=== PATIENT | female | born 1935 | race Caucasian/White ===

== ENCOUNTER → 2016-07-30 | Outpatient (CLI) | payer MEDICARE ==
--- NOTE | 2016-07-31 11:22 | US ---
EXAMINATION TYPE: US thyroid st tissue head/neck DATE OF EXAM: 07/30/2016 4:29 PM COMPARISON: US CLINICAL HISTORY: E04.9 Nontoxic Goiter unspecified. Follow up thyroid nodules GLAND SIZE: Right Lobe: 4.1 x 2.3 x 2.0 cm Overall Parenchyma: heterogenous Left Lobe: 4.8 x 2.2 x 1.7 cm Overall Parenchyma: heterogeneous Isthmus Thickness: 0.7 cm NODULES RIGHT: # of nodules measured on right: 2 1. 0.9 X 0.5 x 0.8 cm hypoechoic solid nodule at the mid pole with well-defined margins. This nodul e is wider than tall and shows intranodular vascularity. Prior size: 0.9 x 0.6 x 0.8 cm 2. 1.3 X 0.8 x 1.3 cm hypoechoic mixed nodule at the lower pole with well-defined margins. This nodu le is wider than tall and shows intranodular vascularity. Prior size: no previous LEFT: # of nodules measured on left: 1 1. 1.0 X 0.7 x 0.9 cm hypoechoic mixed nodule at the mid pole with poorly defined margins. This nod ule is wider than tall and shows intranodular vascularity. Prior size: 1.0 x 1.0 x 0.9 cm ISTHMUS: # of nodules measured in the isthmus: 0 Isthmus appears thickened Heterogeneous thyroid with bilateral nodules described above, bilateral neck scanned, no evidence of lymphadenopathy. IMPRESSION: 1. There appears to be a new 1.3 x 0.8 x 1.3 cm hypoechoic nodule inferior pole right lobe thyroid. This was not present previously. Correlation with nuclear medicine thyroid scan is recommended. Biops y may be useful for additional evaluation.
== END | disposition home or self-care (01) ==
LOC: RADUSWWP 16:09
PROVIDERS: ATTEND Family Medicine
DX: E04.1 Nontoxic single thyroid nodule (principal)
CPT/HCPCS: 76536

== ENCOUNTER → 2017-04-10 | Outpatient (CLI) | payer MEDICARE ==
--- NOTE | 2017-04-11 11:07 | MM ---
Reason for exam: screening (asymptomatic). Last mammogram was performed 1 year and 1 month ago. History: Patient is postmenopausal. Took estrogen for 10 years beginning at age 57. Physical Findings: A clinical breast exam by your physician is recommended on an annual basis and results should be correlated with mammographic findings. MG 3D Screening Mammo W/Cad Bilateral CC and MLO view(s) were taken. Prior study comparison: March 08, 2016, bilateral MG 3d screening mammo w/cad. April 13, 2009, bilateral digital screening mammogram. There are scattered fibroglandular densities. Focal asymmetry inner lower left breast is stable. No significant changes when compared with prior studies. ASSESSMENT: Benign, BI-RAD 2 RECOMMENDATION: Routine screening mammogram of both breasts in 1 year.
== END | disposition home or self-care (01) ==
LOC: RADMAMWWP 10:40
PROVIDERS: ATTEND Family Medicine
DX: Z12.31 Encounter for screening mammogram for malignant neoplasm of breast (principal)
CPT/HCPCS: 77063; 77067

== ENCOUNTER 2017-04-28 18:46 | Emergency (ER) | payer MEDICARE ==
[2017-04-28 18:50] VITALS: BP 166/95; PULSE 77; RESP 20; TEMP 98.1
[2017-04-28] MEDS ORDERED: IBUPROFEN 600 MG TAB PO STA (19:27)
[2017-04-28] MEDS ORDERED: ACETAMINOPHEN TAB 325 MG TAB PO STA (19:27)
--- NOTE | 2017-04-28 19:42 | ED ---
Lower Extremity Injury HPI - General Chief Complaint: Extremity Injury, Lower Stated Complaint: ankle pain Time Seen by Provider: 04/28/17 19:20 Source: patient Mode of arrival: ambulatory Limitations: physical limitation - History of Present Illness Initial Comments: 81-year-old female patient percents to the emergency department today for evaluation of left ankle pain and swelling. Patient states that around noon today she was cross country skiing. States that she lost her balance and fell backwards on her foot was still strapped into the ski. States that she was able to inflate after that however throughout the day the swelling and pain has increased. She denies any numbness or tingling to the foot. She denies hitting her head or losing consciousness. She denies any other injuries. Patient denies any headache, neck pain, back pain, chest pain, shortness of breath, dizziness, weakness, abdominal pain, nausea, vomiting, or difficulties with bowel movements or urination. - Related Data Home Medications Medication Instructions Recorded Confirmed Aspirin 81 mg PO DAILY 02/15/14 04/28/17 Atorvastatin [Lipitor] 10 mg PO DAILY 02/15/14 04/28/17 Omeprazole [Omeprazole] 20 mg PO DAILY 02/15/14 04/28/17 Albuterol Inhaler [Ventolin Hfa 1 - 2 puff INHALATION Q6HR PRN 01/30/16 04/28/17 Inhaler] Multivit with Calcium,Iron,Min 1 tab PO DAILY 01/30/16 04/28/17 [Women's Daily Multivitamin] Solifenacin Succinate [Vesicare] 10 mg PO DAILY 01/30/16 04/28/17 Beclomethasone Dipropionate [Qvar 1 puff INHALATION RT-BID 04/28/17 04/28/17 80 mcg] Calcium Carbonate/Vitamin D3 1 tab PO DAILY 04/28/17 04/28/17 [Calcium 600-Vit D3 400 Caplet] Cholecalciferol (Vitamin D3) 2,000 unit PO DAILY 04/28/17 04/28/17 [Vitamin D3] amLODIPine [Norvasc] 5 mg PO DAILY 04/28/17 04/28/17 Allergies Allergy/AdvReac Type Severity Reaction Status Date / Time No Known Allergies Allergy Verified 04/28/17 19:26 Review of Systems ROS Statement: Those systems with pertinent positive or pertinent negative responses have been documented in the HPI. ROS Other: All systems not noted in ROS Statement are negative. Past Medical History Past Medical History: GI Bleed, Hyperlipidemia, Hypertension, Respiratory Disorder, Thyroid Disorder History of Any Multi-Drug Resistant Organisms: None Reported Past Surgical History: Hysterectomy, Orthopedic Surgery Additional Past Surgical History / Comment(s): cataracts removed, bilateral knee replacements Past Anesthesia/Blood Transfusion Reactions: No Reported Reaction Past Psychological History: No Psychological Hx Reported Smoking Status: Never smoker Past Alcohol Use History: Occasional Past Drug Use History: None Reported - Past Family History Father Family Medical History: No Reported History General Exam Limitations: physical limitation General appearance: alert, in no apparent distress, other (This is a well- developed, well-nourished elderly female patient in no acute distress. Vital signs upon presentation are temperature 98.1F, pulse 77, respirations 20, blood pressure 166/95, pulse ox 98% on room air.) Head exam: Present: atraumatic, normocephalic, normal inspection Eye exam: Present: normal appearance, PERRL, EOMI. Absent: scleral icterus, conjunctival injection, periorbital swelling ENT exam: Present: normal exam, normal oropharynx, mucous membranes moist Neck exam: Present: normal inspection, full ROM, other (Nontender, no step-off, no deformity to firm midline palpation of the posterior cervical spine. Full range of motion without pain or limitation.). Absent: tenderness, meningismus, lymphadenopathy Respiratory exam: Present: normal lung sounds bilaterally. Absent: respiratory distress, wheezes, rales, rhonchi, stridor Cardiovascular Exam: Present: regular rate, normal rhythm, normal heart sounds. Absent: systolic murmur, diastolic murmur, rubs, gallop, clicks Extremities exam: Present: full ROM, tenderness (Tenderness on the left lateral malleolus), normal capillary refill, joint swelling (Left ankle swelling), other (Swelling surrounding the left ankle. Tenderness over the left lateral malleolus. Skin is otherwise pink, warm, and dry. Cap refills less than 3 seconds. There is no fifth metatarsal tenderness.). Absent: normal inspection , pedal edema, calf tenderness Back exam: Present: normal inspection, other (Nontender, no step-off, no deformity to firm midline palpation of the thoracic and lumbar vertebrae. Full range of motion without pain or limitation.). Absent: vertebral tenderness Neurological exam: Present: alert, oriented X3, CN II-XII intact Psychiatric exam: Present: normal affect, normal mood Skin exam: Present: warm, dry, intact, normal color. Absent: rash Course Vital Signs 04/28/17 18:48 Temperature 98.1 F Pulse Rate 77 Respiratory 20 Rate Blood Pressure 166/95 O2 Sat by Pulse 98 Oximetry Medical Decision Making - Medical Decision Making 81-year-old female patient presented to the emergency department today for evaluation of left ankle pain and swelling after falling while cross-country skiing. Physical examination reveals swelling surrounding the left lateral malleolus and tenderness to the same area. Neurovascular status is intact. X- rays negative for any acute fracture or dislocation. Patient symptoms are consistent with an ankle sprain. She'll be placed in an air splint. She is instructed to have repeat x-rays performed in 7-10 days if her symptoms are not improved. She is educated regarding rest, ice, and elevation. She is instructed to return here immediately for any new, worsening, or concerning symptoms. She verbalizes understanding and agrees with this plan. - Radiology Data Radiology results: report reviewed, image reviewed 3 views of the left foot are obtained, no acute fractures are evident. The soft tissues over the foot appear normal. Plantar and Achilles tendon calcaneal heel spurs are present. Some mild soft tissue swelling over the ankles noted. Follow-up exams can be performed in 7-10 days for continued pain. Impression by Dr. Oh shows mild soft tissue swelling at the ankle. Calcaneal heel spurs. No acute displaced fractures are identified. 3 views of the left ankle are obtained, ankle mortise is intact. Minimal soft tissue swelling over the lateral malleolus may be present. Plantar and Achilles tendon calcaneal heel spurs are present. No acute displaced fractures. Impression is by Dr. Oh. Disposition Clinical Impression: Left ankle sprain Disposition: HOME SELF-CARE Condition: Good Instructions: Ankle Sprain (ED) Additional Instructions: Rest, ice, elevate the left ankle. Follow-up for reevaluation and repeat x- rays in 7-10 days if her symptoms persist. Take Tylenol Motrin for discomfort. Return here immediately for any other new, worsening, or concerning symptoms. Referrals: J Luis Aguayo DO [Primary Care Provider] - 1-2 days Time of Disposition: 20:03
--- NOTE | 2017-04-28 19:55 | XR ---
EXAMINATION TYPE: XR foot complete LT DATE OF EXAM: 04/28/2017 COMPARISON: NONE HISTORY: Fall skiing, pain TECHNIQUE: 3 views left foot FINDINGS: No acute fractures are evident. The soft tissues over the foot appear normal. Plantar and A chilles tendon calcaneal heel spurs are present. Some mild soft tissue swelling over the ankle is not ed. Follow-up exams can be performed 7-10 days from acute trauma for continued pain. IMPRESSION: 1. Mild soft tissue swelling at the ankle. 2. Calcaneal heel spurs. 3. No acute displaced fractures identified.
--- NOTE | 2017-04-28 19:55 | XR ---
EXAMINATION TYPE: XR ankle complete LT DATE OF EXAM: 04/28/2017 COMPARISON: NONE HISTORY: Left ankle left foot pain TECHNIQUE: Three-view left ankle FINDINGS: Ankle mortise is intact. Minimal soft tissue swelling over the lateral malleolus may be pre sent. Plantar and Achilles tendon calcaneal heel spurs are present. No acute displaced fractures are evident. IMPRESSION: 1. Soft tissue swelling lateral malleolus. 2. Calcaneal heel spurs. 3. Follow-up exams can be performed 7-10 days from acute trauma for continued pain.
== END 2017-04-28 20:26 | disposition home or self-care (01) ==
LOC: EC 18:46
DX: S93.402A Sprain of unspecified ligament of left ankle, initial encounter (principal); I10 Essential (primary) hypertension; E78.5 Hyperlipidemia, unspecified; E07.9 Disorder of thyroid, unspecified; Z96.653 Presence of artificial knee joint, bilateral; Z79.51 Long term (current) use of inhaled steroids; Z79.82 Long term (current) use of aspirin; Z79.899 Other long term (current) drug therapy; V00.321A Fall from snow-skis, initial encounter; Y93.24 Activity, cross country skiing; Y92.89 Other specified places as the place of occurrence of the external cause
CPT/HCPCS: 73610; 73630; 99283; 29515; L4350

== ENCOUNTER 2018-08-08 09:22 | Emergency (ER) | payer MEDICARE ==
[2018-08-08 09:27] VITALS: BP 148/69; PULSE 70; RESP 18; TEMP 97.8
--- NOTE | 2018-08-08 09:45 | ED ---
General Adult HPI - General Chief complaint: Fall Stated complaint: FALL, HEAD INJURY Time Seen by Provider: 08/08/18 09:35 Source: patient, RN notes reviewed, old records reviewed Mode of arrival: ambulatory Limitations: no limitations - History of Present Illness Initial comments: 82-year-old female presents for evaluation of head injury status post fall. Patient fell 2 days prior striking her right knee, right shoulder, and right forehead. Patient was reading the mail while walking up her driveway, tripped on uneven concrete. She did not lose consciousness. She is on aspirin, no anticoagulation. She's developed worsening black eye and radiating down her right sclera. She is accompanied by her daughter. She was urged present emergency department for evaluation. She denies current knee pain. States she did have some shoulder pain although she has chronic right-sided shoulder pain and states her right shoulder actually feels better than typical. Denies significant headache. She has pain at the site of injury, right forehead and right periorbital region. No vision changes. No focal numbness or weakness. - Related Data Home Medications Medication Instructions Recorded Confirmed Aspirin 81 mg PO DAILY 02/15/14 04/28/17 Atorvastatin [Lipitor] 10 mg PO DAILY 02/15/14 04/28/17 Omeprazole 20 mg PO DAILY 02/15/14 04/28/17 Albuterol Inhaler [Ventolin Hfa 1 - 2 puff INHALATION Q6HR PRN 01/30/16 04/28/17 Inhaler] Multivit with Calcium,Iron,Min 1 tab PO DAILY 01/30/16 04/28/17 [Women's Daily Multivitamin] Solifenacin Succinate [Vesicare] 10 mg PO DAILY 01/30/16 04/28/17 Beclomethasone Dipropionate [Qvar 1 puff INHALATION RT-BID 04/28/17 04/28/17 80 mcg] Calcium Carbonate/Vitamin D3 1 tab PO DAILY 04/28/17 04/28/17 [Calcium 600-Vit D3 400 Caplet] Cholecalciferol (Vitamin D3) 2,000 unit PO DAILY 04/28/17 04/28/17 [Vitamin D3] amLODIPine [Norvasc] 5 mg PO DAILY 04/28/17 04/28/17 Allergies Allergy/AdvReac Type Severity Reaction Status Date / Time No Known Allergies Allergy Verified 08/08/18 09:27 Review of Systems ROS Statement: Those systems with pertinent positive or pertinent negative responses have been documented in the HPI. ROS Other: All systems not noted in ROS Statement are negative. Past Medical History Past Medical History: GI Bleed, Hyperlipidemia, Hypertension, Respiratory Disorder, Thyroid Disorder History of Any Multi-Drug Resistant Organisms: None Reported Past Surgical History: Hysterectomy, Orthopedic Surgery Additional Past Surgical History / Comment(s): cataracts removed, bilateral knee replacements Past Anesthesia/Blood Transfusion Reactions: No Reported Reaction Past Psychological History: No Psychological Hx Reported Smoking Status: Never smoker Past Alcohol Use History: Occasional Past Drug Use History: None Reported - Past Family History Father Family Medical History: No Reported History General Exam Limitations: no limitations General appearance: alert, in no apparent distress Head exam: Present: normocephalic, other (Right periorbital ecchymosis, forehead hematoma and ecchymosis, tenderness over the lateral orbit.) Eye exam: Present: PERRL, EOMI, periorbital swelling, periorbital tenderness, other (Some conjunctival hemorrhage, no hyphema) ENT exam: Present: normal exam Neck exam: Present: normal inspection, full ROM. Absent: tenderness, meningismus Respiratory exam: Present: normal lung sounds bilaterally. Absent: respiratory distress, wheezes Cardiovascular Exam: Present: regular rate, normal rhythm GI/Abdominal exam: Present: soft. Absent: distended, tenderness, guarding Extremities exam: Present: normal inspection, normal capillary refill. Absent: pedal edema Neurological exam: Present: alert, oriented X3, CN II-XII intact. Absent: motor sensory deficit Psychiatric exam: Present: normal affect, normal mood Skin exam: Present: warm, dry, intact. Absent: cyanosis, diaphoretic Course Vital Signs 08/08/18 09:23 Temperature 97.8 F Pulse Rate 70 Respiratory 18 Rate Blood Pressure 148/69 O2 Sat by Pulse 98 Oximetry Medical Decision Making - Medical Decision Making 82-year-old female with fall, head injury. Patient has periorbital ecchymosis and bony tenderness over the right lateral orbit. Extraocular motions are intact. She has a minor subconjunctival hemorrhage with no hyphema, reactive pupils. CT is performed of the brain is negative for intracranial hemorrhage, CT cervical spine negative for fracture subluxation, CT of the facial bones is negative for any acute bony abnormality. Patient will be discharged home, close outpatient follow-up. Disposition Clinical Impression: Fall, Traumatic ecchymosis of right orbit, Closed head injury Disposition: HOME SELF-CARE Condition: Good Instructions (If sedation given, give patient instructions): Fall Prevention for Older Adults (ED), Black Eye (ED), Concussion (ED) Is patient prescribed a controlled substance at d/c from ED?: No Referrals: J Luis Aguayo DO [Primary Care Provider] - 1-2 days Time of Disposition: 10:36
--- NOTE | 2018-08-08 10:08 | CT ---
EXAMINATION TYPE: CT brain marcos wo con DATE OF EXAM: 08/08/2018 COMPARISON: 05/03/2015 HISTORY: Right eye contusion post fall. CT DLP: 730.[address] of the brain was performed. The ventricles, basal cisterns and sulci overlying the cerebral convexities demonstrate mild enlargem ent. Physiologic calcifications noted. There is no evidence for intracranial hemorrhage or sulcal effacement. There is decreased attenuatio n about the periventricular white matter and deep white matter of both cerebral hemispheres, compatib le with chronic small vessel ischemia. No mass effects are seen. If symptoms persist consider MRI. Osseous calvarium is intact. IMPRESSION: 1. Age related atrophic and chronic small vessel ischemic change without acute intracranial process seen at this time. CT Cervical Spine: Unenhanced CT of the cervical spine was performed with bone and soft tissue window settings submitted . Coronal and sagittal reconstruction is obtained. There is normal alignment and prevertebral soft tissues. No evidence for acute cervical fracture . Scattered degenerative disc disease and spondylosis. Biapical scarring. IMPRESSION: 1. No evidence for acute fracture or subluxation of the cervical spine.
--- NOTE | 2018-08-08 10:09 | CT ---
EXAMINATION TYPE: CT facial bones wo con DATE OF EXAM: 08/08/2018 COMPARISON: None HISTORY: Right eye contusion post fall. CT DLP: 208.[address] of the facial bones was performed in the axial and coronal planes. Bone and soft tissu e window settings are submitted. Mild right periorbital soft tissue swelling. I do not see evidence for displaced facial bone fracture or depressed facial bone fracture. The globes are intact. Paranasal sinuses are well-aerated. IMPRESSION: 1. No evidence for depressed or displaced facial bone fracture.
== END 2018-08-08 10:48 | disposition home or self-care (01) ==
LOC: EC 09:22
DX: S00.11XA Contusion of right eyelid and periocular area, initial encounter (principal); S00.83XA Contusion of other part of head, initial encounter; H11.30 Conjunctival hemorrhage, unspecified eye; G89.29 Other chronic pain; M25.511 Pain in right shoulder; E78.5 Hyperlipidemia, unspecified; I10 Essential (primary) hypertension; Z79.51 Long term (current) use of inhaled steroids; Z79.82 Long term (current) use of aspirin; Z79.899 Other long term (current) drug therapy; Z87.19 Personal history of other diseases of the digestive system; Z87.09 Personal history of other diseases of the respiratory system; Z96.653 Presence of artificial knee joint, bilateral; W01.0XXA Fall on same level from slipping, tripping and stumbling without subsequent striking against object, initial encounter; Y93.01 Activity, walking, marching and hiking; Y92.009 Unspecified place in unspecified non-institutional (private) residence as the place of occurrence of the external cause
CPT/HCPCS: 70450; 70486; 72125; 99284

== ENCOUNTER 2018-08-21 20:24 | Emergency (ER) | payer MEDICARE ==
[2018-08-21 20:30] VITALS: RESP 18
[2018-08-21 21:33] LABS: RBC,Urine >182 /hpf (0-5); WBC,Urine >182 /hpf (0-5)
[2018-08-21 21:34] LABS: Appearance,Urine Bloody (Clear); Color,Urine Red
--- NOTE | 2018-08-21 21:43 | ED ---
Female Urogenital HPI - General Source: patient Mode of arrival: ambulatory Limitations: no limitations <Julio Frias - Last Filed: 08/21/18 22:27> <Elena Stevens - Last Filed: 08/22/18 02:52> - General Chief complaint: Urogenital Stated complaint: blood in urine Time Seen by Provider: 08/21/18 20:39 - History of Present Illness Initial comments: Patient is an 82-year-old female presents emergency Department with urinary symptoms. Patient reports increased urgency and frequency, dysuria but no dysuria over the past 2 days. Patient reports mild suprapubic pain without radiation. Patient states that she is unable to fully control of bladder. Patient reports hematuria developed since yesterday but denies hematochezia or melena. Patient denies abdominal pain, flank pain, headache, nausea, vomiting, diarrhea or fever. Patient denies taking any medication to alleviate the symptoms. Patient reports symptoms of urinary retention but states that is her baseline as she is receiving outpatient treatment. (Julio Frias) - Related Data Home Medications Medication Instructions Recorded Confirmed Aspirin 81 mg PO DAILY 02/15/14 04/28/17 Atorvastatin [Lipitor] 10 mg PO DAILY 02/15/14 04/28/17 Omeprazole 20 mg PO DAILY 02/15/14 04/28/17 Albuterol Inhaler [Ventolin Hfa 1 - 2 puff INHALATION Q6HR PRN 01/30/16 04/28/17 Inhaler] Multivit with Calcium,Iron,Min 1 tab PO DAILY 01/30/16 04/28/17 [Women's Daily Multivitamin] Solifenacin Succinate [Vesicare] 10 mg PO DAILY 01/30/16 04/28/17 Beclomethasone Dipropionate [Qvar 1 puff INHALATION RT-BID 04/28/17 04/28/17 80 mcg] Calcium Carbonate/Vitamin D3 1 tab PO DAILY 04/28/17 04/28/17 [Calcium 600-Vit D3 400 Caplet] Cholecalciferol (Vitamin D3) 2,000 unit PO DAILY 04/28/17 04/28/17 [Vitamin D3] amLODIPine [Norvasc] 5 mg PO DAILY 04/28/17 04/28/17 Previous Rx's Medication Instructions Recorded Ciprofloxacin HCl [Cipro] 500 mg PO Q12HR #20 tablet 08/21/18 Allergies Allergy/AdvReac Type Severity Reaction Status Date / Time No Known Allergies Allergy Verified 08/21/18 20:30 Review of Systems ROS Other: All systems not noted in ROS Statement are negative. <Julio Frias - Last Filed: 08/21/18 22:27> ROS Other: All systems not noted in ROS Statement are negative. <Elena Stevens - Last Filed: 08/22/18 02:52> ROS Statement: Those systems with pertinent positive or pertinent negative responses have been documented in the HPI. Past Medical History Past Medical History: GI Bleed, Hyperlipidemia, Hypertension, Respiratory Disorder, Thyroid Disorder History of Any Multi-Drug Resistant Organisms: None Reported Past Surgical History: Hysterectomy, Orthopedic Surgery Additional Past Surgical History / Comment(s): cataracts removed, bilateral knee replacements Past Anesthesia/Blood Transfusion Reactions: No Reported Reaction Past Psychological History: No Psychological Hx Reported Smoking Status: Never smoker Past Alcohol Use History: Occasional Past Drug Use History: None Reported - Past Family History Father Family Medical History: No Reported History <Julio Frias - Last Filed: 08/21/18 22:27> General Exam Limitations: no limitations General appearance: alert, in no apparent distress Head exam: Present: atraumatic, normocephalic, normal inspection Eye exam: Present: normal appearance, PERRL, EOMI Pupils: Present: normal accommodation ENT exam: Present: normal exam, mucous membranes moist, TM's normal bilaterally Neck exam: Present: normal inspection, full ROM Respiratory exam: Present: normal lung sounds bilaterally Cardiovascular Exam: Present: regular rate, normal rhythm, normal heart sounds GI/Abdominal exam: Present: soft, tenderness (Mild suprapubic tenderness), normal bowel sounds, other (Negative McBurney point tenderness, negative psoas sign, negative Rovsing, negative Yang sign). Absent: distended, guarding, rebound Extremities exam: Present: normal inspection, full ROM Back exam: Present: normal inspection. Absent: CVA tenderness (R), CVA tenderness (L) Neurological exam: Present: alert, oriented X3 Psychiatric exam: Present: normal affect, normal mood Skin exam: Present: warm, intact, normal color <Julio Frias - Last Filed: 06/06/19 22:27> Course Vital Signs 08/21/18 08/21/18 20:26 22:53 Temperature 98 F 98.0 F Pulse Rate 79 67 Respiratory 18 18 Rate Blood Pressure 172/75 153/72 O2 Sat by Pulse 96 97 Oximetry Medical Decision Making - Lab Data Result diagrams: 08/21/18 21:24 08/21/18 21:24 <Julio Frias - Last Filed: 08/21/18 22:27> - Lab Data Result diagrams: 08/21/18 21:24 08/21/18 21:24 <Elena Stevens - Last Filed: 08/22/18 02:52> - Medical Decision Making Patient is an 82-year-old female presenting to emergency department with urinary symptoms. UA showing for elevated red and white blood cells. Patient will be treated for a complicated UTI with a ten-day course of ciprofloxacin. Patient advised about the possible side effects of the medication. Patient advised to follow with primary care. Patient advised to return to emergency department if symptoms worsen. Case discussed with physician. (Julio Frias) I was available for consultation in the emergency department. The history and physical exam were done by the midlevel provider. I was consulted for this patient's care. I reviewed the case with the midlevel provider and based on their presentation of the patient, I agree with the assessment, medical decision making and plan of care as documented. Chart was dictated using [employer] dictation software. Attempts were made to correct any dictation errors however some typographical errors may persist. (Elena Stevens) - Lab Data Lab Results 08/21/18 08/21/18 08/21/18 Range/Units 20:55 21:24 21:24 WBC 7.7 (3.8-10.6) k/uL RBC 4.02 (3.80-5.40) m/uL Hgb 12.0 (11.4-16.0) gm/dL Hct 36.6 (34.0-46.0) % MCV 91.0 (80.0-100.0) fL MCH 30.0 (25.0-35.0) pg MCHC 32.9 (31.0-37.0) g/dL RDW 13.8 (11.5-15.5) % Plt Count 264 (150-450) k/uL Neutrophils % 66 % Lymphocytes % 24 % Monocytes % 5 % Eosinophils % 3 % Basophils % 1 % Neutrophils # 5.1 (1.3-7.7) k/uL Lymphocytes # 1.8 (1.0-4.8) k/uL Monocytes # 0.4 (0-1.0) k/uL Eosinophils # 0.2 (0-0.7) k/uL Basophils # 0.1 (0-0.2) k/uL Sodium 134 L (137-145) mmol/L Potassium 4.8 (3.5-5.1) mmol/L Chloride 102 (98-107) mmol/L Carbon Dioxide 25 (22-30) mmol/L Anion Gap 7 mmol/L BUN 20 H (7-17) mg/dL Creatinine 0.84 (0.52-1.04) mg/dL Est GFR (CKD-EPI)AfAm 76 (>60 ml/min/1.73 sqM) Est GFR (CKD-EPI)NonAf 66 (>60 ml/min/1.73 sqM) Glucose 110 H (74-99) mg/dL Calcium 9.5 (8.4-10.2) mg/dL Total Bilirubin 0.7 (0.2-1.3) mg/dL AST 34 (14-36) U/L ALT 13 (9-52) U/L Alkaline Phosphatase 81 (38-126) U/L Total Protein 7.6 (6.3-8.2) g/dL Albumin 4.3 (3.5-5.0) g/dL Urine Color Red Urine Appearance Bloody H (Clear) Urine RBC >182 H (0-5) /hpf Urine WBC >182 H (0-5) /hpf Disposition Is patient prescribed a controlled substance at d/c from ED?: No Time of Disposition: 22:31 <Julio Frias - Last Filed: 08/21/18 22:27> <Elena Stevens - Last Filed: 08/22/18 02:52> Clinical Impression: Urinary tract infection symptoms Disposition: HOME SELF-CARE Condition: Stable Instructions (If sedation given, give patient instructions): Urinary Tract Infection in Women (ED) Additional Instructions: Please take prescribed medication as directed. Please follow up primary care. Return to emergency department if symptoms worsen. Prescriptions: Ciprofloxacin HCl [Cipro] 500 mg PO Q12HR #20 tablet Referrals: J Luis Aguayo DO [Primary Care Provider] - 1-2 days
[2018-08-21 21:46] LABS: Basophils # (A) 0.1 k/uL (0-0.2); Basophils % (A) 1 %; Eosinophils # (A) 0.2 k/uL (0-0.7); Eosinophils % (A) 3 %; HCT 36.6 % (34.0-46.0); Lymphocytes # (A) 1.8 k/uL (1.0-4.8); Lymphocytes % (A) 24 %; MCHC 32.9 g/dL (31.0-37.0); Mean Platelet Volume 6.9; Monocytes # (A) 0.4 k/uL (0-1.0); Monocytes % (A) 5 %; Neutrophils # (A) 5.1 k/uL (1.3-7.7); Neutrophils % (A) 66 %; Platelet Count 264 k/uL (150-450); RBC 4.02 m/uL (3.80-5.40); RDW 13.8 % (11.5-15.5); WBC 7.7 k/uL (3.8-10.6)
[2018-08-21 21:49] LABS: Albumin 4.3 g/dL (3.5-5.0); Calcium 9.5 mg/dL (8.4-10.2); Total Bilirubin 0.7 mg/dL (0.2-1.3); Total Protein 7.6 g/dL (6.3-8.2)
[2018-08-21 22:05] LABS: Potassium 4.8 mmol/L (3.5-5.1)
[2018-08-21] MEDS ORDERED: CIPROFLOXACIN HCL 500 MG TAB PO STA (22:37)
[2018-08-21 22:54] VITALS: BP 153/72; PULSE 67; TEMP 98
== END 2018-08-21 22:53 | disposition home or self-care (01) ==
LOC: EC 20:24
DX: N39.0 Urinary tract infection, site not specified (principal); E78.5 Hyperlipidemia, unspecified; I10 Essential (primary) hypertension; Z79.51 Long term (current) use of inhaled steroids; Z79.82 Long term (current) use of aspirin; Z79.899 Other long term (current) drug therapy; Z87.19 Personal history of other diseases of the digestive system; Z90.710 Acquired absence of both cervix and uterus; Z96.653 Presence of artificial knee joint, bilateral
CPT/HCPCS: 36415; 51798; 80053; 85025; 87086; 99284

== ENCOUNTER → 2018-10-10 | Outpatient (CLI) | payer MEDICARE ==
--- NOTE | 2018-10-10 14:20 | US ---
EXAMINATION TYPE: US thyroid st tissue head/neck DATE OF EXAM: 10/10/2018 COMPARISON: CLINICAL HISTORY: E04.2 Nontoxic multinodular goiter. On thyroid meds. Follow up nodules. GLAND SIZE: Right Lobe: 5.0 x 2.0 x 2.3 cm Overall Parenchyma: heterogenous Left Lobe: 4.4 x 2.1 x 2.2 cm Overall Parenchyma: heterogeneous Isthmus Thickness: 0.7 cm NODULES RIGHT: # of nodules measured on right: 2 1. 1.0 X 0.9 x 0.6 cm hypoechoic nodule at the mid pole with well-defined margins. This nodule is wider than tall and shows intranodular vascularity. Prior size: 0.9 x 0.5 x 0.8 cm 2. 1.3 X 1.1 x 1.1 cm mixed nodule at the lower pole with well-defined margins. This nodule is wide as tall and shows intranodular vascularity. Prior size: 1.3 x 0.8 x 1.3 cm LEFT: # of nodules measured on left: 1 1. 1.0 X 0.9 x 1.0 cm mixed nodule at the mid pole with well-defined margins. This nodule is talle r than wide and shows intranodular vascularity. Prior size: 1.0 x 0.7 x 0.9 cm ISTHMUS: # of nodules measured in the isthmus: 0 Bilateral neck scanned, no evidence of lymphadenopathy. Glandular hypervascularity seen throughout. IMPRESSION: Similar size of the bilateral thyroid nodules in an enlarged and heterogenous multinodular goiter. Un derlying thyroiditis is suspected as there is glandular hypervascularity.
== END | disposition home or self-care (01) ==
LOC: RADUSWWP 12:54
PROVIDERS: ATTEND Internal Medicine Endocrinology, Diabetes & Metabolism
DX: E04.2 Nontoxic multinodular goiter (principal)
CPT/HCPCS: 76536

== ENCOUNTER → 2019-10-07 | Outpatient (CLI) | payer MEDICARE ==
--- NOTE | 2019-10-07 13:14 | US ---
EXAMINATION TYPE: US thyroid st tissue head/neck DATE OF EXAM: 10/07/2019 COMPARISON: 10/10/2018 CLINICAL HISTORY: E04.2 Nontoxic multinodular goiter. Follow up thyroid nodules, patient on thyroid m eds GLAND SIZE: Right Lobe: 5.2 x 2.3 x 2.4 cm Overall Parenchyma: heterogenous Left Lobe: 5.3 x 2.2 x 1.9 cm Overall Parenchyma: heterogeneous Isthmus Thickness: 0.8 cm NODULES RIGHT: # of nodules measured on right: 2 1. 1.3 X 0.9 x 1.3 cm hypoechoic mixed nodule at the mid pole with well-defined margins. This nodul e is wider than tall and shows intranodular vascularity. Prior size: 1.0 x 0.9 x 0.6 cm 2. 1.2 X 0.9 x 1.2 cm hypoechoic mixed nodule at the lower pole with well-defined margins. This nodu le is wider than tall and shows intranodular vascularity. Prior size: 1.3 x 1.1 x 1.1 cm LEFT: # of nodules measured on left: 0 Nodule seen on previous ultrasound not clearly seen on today's exam. ISTHMUS: # of nodules measured in the isthmus: 0 Bilateral neck scanned, no evidence of lymphadenopathy. IMPRESSION: 1. Stable multinodular thyroid changes. Correlate for thyromegaly and thyroiditis.
== END | disposition home or self-care (01) ==
LOC: RADUSWWP 12:43
PROVIDERS: ATTEND Internal Medicine Endocrinology, Diabetes & Metabolism
DX: E04.2 Nontoxic multinodular goiter (principal)
CPT/HCPCS: 76536

== ENCOUNTER → 2019-11-09 | Outpatient (CLI) | payer MEDICARE ==
--- NOTE | 2019-11-09 15:13 | FL ---
EXAMINATION TYPE: FL barium swallow DATE OF EXAM: 11/09/2019 CLINICAL HISTORY: Gastroesophageal reflux, lump in the epigastric region TECHNIQUE: A double contrast esophagram is performed utilizing air and barium. A total of 50 second s of fluoroscopic time was utilized during procedure. 14 images were obtained. COMPARISON: None FINDINGS: Esophagus dilates to normal caliber has normal contour to the gastroesophageal junction. There is a s mall hiatal hernia present. Multiple tertiary contractions within the distal third of the esophagus. There may have been a secondary contraction present. In the horizontal drinking position there is incomplete stripping the esophageal bolus with retention of contrast within the mid esophagus. IMPRESSION: 1. Presbyesophagus. 2. Hiatal hernia.
== END | disposition home or self-care (01) ==
LOC: RADFLMAIN 09:48
PROVIDERS: ATTEND Family Medicine
DX: K22.8 Other specified diseases of esophagus (principal); K44.9 Diaphragmatic hernia without obstruction or gangrene; K21.9 Gastro-esophageal reflux disease without esophagitis
CPT/HCPCS: 74220

== ENCOUNTER → 2019-11-26 | Outpatient (CLI) | payer MEDICARE ==
--- NOTE | 2019-11-26 13:26 | CT ---
EXAMINATION TYPE: CT abdomen pelvis w con DATE OF EXAM: 11/26/2019 HISTORY: Ventral hernia without obstruction. CT DLP: 795.2mGycm Automated Exposure Control for Dose Reduction was Utilized. CONTRAST: CT scan of the abdomen and pelvis is performed without oral but with IV Contrast, patient injected wi th 100 mL of Isovue 300. COMPARISON: None. FINDINGS: LUNG BASES: There is 3 mm calcified subpleural nodule or granuloma right lung base axial image 18. LIVER/GB: No significant abnormality is appreciated. PANCREAS: No significant abnormality is seen. SPLEEN: No significant abnormality is seen. ADRENALS: No significant abnormality is seen. KIDNEYS: There is symmetric cortical medullary uptake and excretion without hydronephrosis seen bilat erally. There are several simple-appearing thin-walled cysts noted bilaterally including dominant exo phytic lesions in the right kidney and more central parapelvic thin-walled cyst in the left kidney. T here is 1.7 cm slightly more dense exophytic lesion right kidney mid to lower pole level favoring pro teinaceous cyst coronal image 55, Hounsfield units average 36. Consider ultrasound follow-up to exclu de solid mass though felt Much less likely. BOWEL: Small size hiatal hernia. High dense material within the cecum causes streak artifact, additio nal finding noted in diverticula of the sigmoid colon. Finding likely related to retained contrast fr om esophagram study November 09, 2019. No suspicious small or large bowel dilatation. Mild wall thicken ing transverse and left colon presumed product of poor distention. UTERUS/ADNEXA: Uterus is surgically absent. LYMPH NODES: No greater than 1cm abdominal or pelvic lymph nodes are appreciated. OSSEOUS STRUCTURES: Moderate narrowing and spurring of both hip joints. Moderate to severe narrowing lumbosacral junction. Facet arthropathy lower lumbar levels. Hemangioma right T12 level on image 65. OTHER: Moderate to severe calcified plaque of the aorta extends into branch vessels. Tiny fat-contain ing umbilical hernia. IMPRESSION: Tiny fat-containing umbilical hernia otherwise no ventral wall hernia identified. No manas l obstruction. Distal colonic diverticulosis without acute diverticulitis.
== END | disposition home or self-care (01) ==
LOC: RADCTMAIN 11:36
PROVIDERS: ATTEND Student in an Organized Health Care Education/Training Program
DX: K42.9 Umbilical hernia without obstruction or gangrene (principal); K57.30 Diverticulosis of large intestine without perforation or abscess without bleeding; K43.9 Ventral hernia without obstruction or gangrene
CPT/HCPCS: 82565; 84520; 74177; 36415; Q9967

== ENCOUNTER → 2019-12-17 | Outpatient (CLI) | payer MEDICARE | END | disposition home or self-care (01) | LOC: LABWHC1 12:25 | PROVIDERS: ATTEND Student in an Organized Health Care Education/Training Program | DX: U07.1 COVID-19 (principal) ==

== ENCOUNTER 2019-12-22 07:08 | Day surgery (SDC) | payer MEDICARE ==
[2019-12-21 10:44] VITALS: BMI 29.1
[~2019-12-22 07:08] MED LIST: DEXAMETHASONE SOD PHOSPHATE 10 MG/ML 1 ML VIAL IV ONE; HYDROmorphone 0.5 MG/0.5 ML SYRINGE IVP PRN; LACTATED RINGERS 1,000 ML IV SCH; MIDAZOLAM 2 MG/2 ML VIAL IV PRN; ONDANSETRON 4 MG/2 ML VIAL IVP ONE; Pre Op ABX Message 1 EACH MISC MISCELLANE ONE
[2019-12-22 07:57] VITALS: TEMP 98.2
[2019-12-22] MEDS ORDERED: fentaNYL (PF) 50 MCG/ML 2 ML AMP ONE (08:27)
[2019-12-22] MEDS ORDERED: PROPOFOL 10 MG/ML 20 ML VIAL IV ONE (08:27)
[2019-12-22] MEDS ORDERED: ceFAZolin 1,000 MG VIAL IVPB ONE (08:36)
[2019-12-22] MEDS ORDERED: LIDOCAINE 1%-EPI 1:100,000 20 ML VIAL SQ ONE ×2 (08:40→08:52)
--- NOTE | 2019-12-22 09:02 | P.OP ---
Date of Procedure: 12/22/19 Preoperative Diagnosis: Soft Tissue Mass anterior abdomen RUQ Postoperative Diagnosis: Same Procedure(s) Performed: Excision of soft tissue mass anterior right upper abdomen Anesthesia: MAC Surgeon: Dylan Bowser Estimated Blood Loss (ml): 3 Pathology: other (Soft tissue mass) Condition: stable Disposition: same day Description of Procedure: Patient brought operative suite remained in supine position underwent sedation per department of anesthesia she was prepped and draped in the usual sterile fashion timeout was performed correct patient correct procedure correct site was verified. A 4 cm incision was made in the right upper anterior abdomen cyst dissected down through the subcutaneous tissues were a soft tissue mass approximately 3 cm x 3 cm was noted this appeared to be a lipoma this was excised completely and sent to pathology. Hemostasis was achieved the wound was copiously irrigated the wound was then closed with 30 subdermal Vicryl sutures followed by 4-0 Monocryl running subcuticular suture sterile dressing was applied patient tolerated the procedure well no apparent complications Plan - Discharge Summary Discharge Rx Participant: No New Discharge Prescriptions: No Action Omeprazole 20 mg PO DAILY Atorvastatin [Lipitor] 10 mg PO DAILY Aspirin 81 mg PO DAILY Solifenacin Succinate [Vesicare] 5 mg PO DAILY Multivit with Calcium,Iron,Min [Women's Daily Multivitamin] 1 tab PO DAILY amLODIPine [Norvasc] 5 mg PO DAILY Calcium Carbonate/Vitamin D3 [Calcium 600-Vit D3 400 Caplet] 1 tab PO DAILY Cholecalciferol (Vitamin D3) [Vitamin D3] 2,000 unit PO DAILY Levothyroxine Sodium [Synthroid] 50 mcg PO DAILY Discharge Medication List Aspirin 81 mg PO DAILY 02/15/14 [History] Atorvastatin [Lipitor] 10 mg PO DAILY 02/15/14 [History] Omeprazole 20 mg PO DAILY 02/15/14 [History] Multivit with Calcium,Iron,Min [Women's Daily Multivitamin] 1 tab PO DAILY 01/30/16 [History] Solifenacin Succinate [Vesicare] 5 mg PO DAILY 01/30/16 [History] Calcium Carbonate/Vitamin D3 [Calcium 600-Vit D3 400 Caplet] 1 tab PO DAILY 04/28/17 [History] Cholecalciferol (Vitamin D3) [Vitamin D3] 2,000 unit PO DAILY 04/28/17 [History] amLODIPine [Norvasc] 5 mg PO DAILY 04/28/17 [History] Levothyroxine Sodium [Synthroid] 50 mcg PO DAILY 12/21/19 [History]
[2019-12-22 09:18] VITALS: BP 151/72; PULSE 68; RESP 16
== END 2019-12-22 09:44 | disposition home or self-care (01) ==
LOC: OR 07:08
PROVIDERS: ATTEND Student in an Organized Health Care Education/Training Program
DX: D17.1 Benign lipomatous neoplasm of skin and subcutaneous tissue of trunk (principal); K42.9 Umbilical hernia without obstruction or gangrene; I10 Essential (primary) hypertension; E78.5 Hyperlipidemia, unspecified; E07.9 Disorder of thyroid, unspecified; J44.9 Chronic obstructive pulmonary disease, unspecified; M19.90 Unspecified osteoarthritis, unspecified site; Z79.82 Long term (current) use of aspirin; Z79.890 Hormone replacement therapy; Z79.899 Other long term (current) drug therapy; K21.9 Gastro-esophageal reflux disease without esophagitis; Z90.710 Acquired absence of both cervix and uterus; Z98.41 Cataract extraction status, right eye; Z98.42 Cataract extraction status, left eye; Z98.890 Other specified postprocedural states; Z96.659 Presence of unspecified artificial knee joint; Z82.49 Family history of ischemic heart disease and other diseases of the circulatory system; Z83.3 Family history of diabetes mellitus
CPT/HCPCS: 88304; 21931; J1100; J2405; J0690; J3010; J2704

== ENCOUNTER 2020-10-02 15:37 | Emergency (ER) | payer MEDICARE ==
[2020-10-02 15:53] VITALS: RESP 18; TEMP 98.1
[2020-10-02] MEDS ORDERED: ACETAMINOPHEN TAB 500 MG TAB PO STA (16:39)
--- NOTE | 2020-10-02 16:41 | ED ---
General Adult HPI - General Chief complaint: Fall Stated complaint: Fall Time Seen by Provider: 10/02/20 15:56 Source: patient, RN notes reviewed Mode of arrival: ambulatory Limitations: physical limitation - History of Present Illness Initial comments: 85-year-old female with a past medical history of hyperlipidemia, hypertension, GI bleed presents to the emergency room for chief of trip and fall. Patient reports that she was walking outside when she tripped over the uneven ground and fell onto a picnic table. Patient states the right side of her anterior chest wall. The patient thinks he was was her right eyebrow. Patient did not lose consciousness. Patient does not take blood thinners. Patient states her pain is mild in nature. She only would like a Tylenol. Patient has no other complaints at this time including shortness of breath, chest pain, abdominal pain, nausea or vomiting, headache, or visual changes. - Related Data Home Medications Medication Instructions Recorded Confirmed Aspirin 81 mg PO DAILY 02/15/14 12/22/19 Atorvastatin [Lipitor] 10 mg PO DAILY 02/15/14 12/22/19 Omeprazole 20 mg PO DAILY 02/15/14 12/22/19 Multivit with Calcium,Iron,Min 1 tab PO DAILY 01/30/16 12/22/19 [Women's Daily Multivitamin] Solifenacin Succinate [Vesicare] 5 mg PO DAILY 01/30/16 12/22/19 Calcium Carbonate/Vitamin D3 1 tab PO DAILY 04/28/17 12/22/19 [Calcium 600-Vit D3 400 Caplet] Cholecalciferol (Vitamin D3) 2,000 unit PO DAILY 04/28/17 12/22/19 [Vitamin D3] amLODIPine [Norvasc] 5 mg PO DAILY 04/28/17 12/22/19 Levothyroxine Sodium [Synthroid] 50 mcg PO DAILY 12/21/19 12/22/19 Previous Rx's Medication Instructions Recorded HYDROcodone/APAP 5-325MG [[place] 1 tab PO Q6HR PRN 3 Days #5 tab 12/22/19 5-325] Allergies Allergy/AdvReac Type Severity Reaction Status Date / Time No Known Allergies Allergy Verified 10/02/20 15:50 Review of Systems ROS Statement: Those systems with pertinent positive or pertinent negative responses have been documented in the HPI. ROS Other: All systems not noted in ROS Statement are negative. Past Medical History Past Medical History: GI Bleed, Hyperlipidemia, Hypertension, Osteoarthritis (OA), Respiratory Disorder, Thyroid Disorder History of Any Multi-Drug Resistant Organisms: None Reported Past Surgical History: Hysterectomy, Joint Replacement, Orthopedic Surgery Additional Past Surgical History / Comment(s): cataracts removed, BILATERAL EYE SURGERY -(MEMBRANE SURGERY) , bilateral knee replacements Past Anesthesia/Blood Transfusion Reactions: No Reported Reaction Past Psychological History: No Psychological Hx Reported Smoking Status: Never smoker Past Alcohol Use History: Occasional Past Drug Use History: None Reported - Past Family History Father Family Medical History: No Reported History Brother(s) Family Medical History: Cancer, Deep Vein Thrombosis (DVT) Additional Family Medical History / Comment(s): BLADDER CANCER General Exam Limitations: physical limitation General appearance: alert, in no apparent distress Head exam: Present: atraumatic, normocephalic, normal inspection Eye exam: Present: PERRL, EOMI, periorbital swelling, periorbital tenderness (mild r sided ecchymosis, mild edema of the right upper orbit). Absent: scleral icterus, conjunctival injection ENT exam: Present: normal exam, mucous membranes moist Neck exam: Present: normal inspection, full ROM. Absent: tenderness, meningismus, lymphadenopathy Respiratory exam: Present: normal lung sounds bilaterally, chest wall tenderness (mild R anterior chest wall tenderness, no ecchymosis). Absent: respiratory distress, wheezes, rales, rhonchi, stridor Cardiovascular Exam: Present: regular rate, normal rhythm, normal heart sounds. Absent: systolic murmur, diastolic murmur, rubs, gallop, clicks GI/Abdominal exam: Present: soft, normal bowel sounds. Absent: distended, tenderness, guarding, rebound, rigid Course Vital Signs 10/02/20 15:50 Temperature 98.1 F Pulse Rate 70 Respiratory 18 Rate Blood Pressure 161/66 O2 Sat by Pulse 98 Oximetry EKG Findings - EKG Comments: EKG Findings:: Normal sinus rhythm, ventricular rate 63, ND interval 170, QTc 454 Medical Decision Making - Medical Decision Making Vitals are stable. Patient is well-appearing. Patient does have some mild yahir-orbital ecchymosis on the right superior orbit. Mild right anterior lower chest wall tenderness. No abdominal tenderness. No chest or abdominal ecchymosis. CT brain was obtained which shows no acute intracranial abnormality. CT cervical spine shows no fracture. Rib x-ray shows no active cardiopulmonary disease. Normal right ribs. At this time patient can be discharged home to follow up with primary care. Recommend Tylenol for pain. She will return here for any worsening symptoms. Disposition Clinical Impression: Fall, Periorbital contusion of right eye, Rib contusion Disposition: HOME SELF-CARE Condition: Good Instructions (If sedation given, give patient instructions): Head Injury (ED), Rib Contusion (ED) Additional Instructions: Please take Tylenol for pain. Follow-up with your doctor in one to 2 days. If you have any worsening symptoms return to the emergency room. Is patient prescribed a controlled substance at d/c from ED?: No Referrals: J Luis Aguayo DO [Primary Care Provider] - 1-2 days Time of Disposition: 17:32
--- NOTE | 2020-10-02 17:09 | CT ---
EXAMINATION TYPE: CT brain marcos wo con DATE OF EXAM: 10/02/2020 COMPARISON: 08/08/2018 HISTORY: fall CT DLP: 1206.3 mGycm Automated exposure control for dose reduction was used. Ventricles have normal size. There is no mass effect nor midline shift. There is no sign of intracran ial hemorrhage. There is symmetric thalamic calcification. There is bilateral cerebellar calcificatio n. The calvarium is intact. There is right frontal scalp small hematoma. Cervical vertebra have normal alignment. There is degenerative disc space narrowing from C4 to C7 wit h spurring of the endplates. There is multilevel cervical facet arthropathy. There is no compression fracture. IMPRESSION: Multilevel cervical spondylotic changes. Facet arthropathy. No cervical spine fracture. No change. Mild cerebral atrophy. Chronic brain parenchyma calcification appears stable compared to old exam. No acute intracranial abnormality. Acute small right frontal scalp hematoma.
--- NOTE | 2020-10-02 17:14 | XR ---
EXAMINATION TYPE: XR ribs RT w pa chest xray DATE OF EXAM: 10/02/2020 COMPARISON: NONE HISTORY: Right-sided rib pain TECHNIQUE: 5 views FINDINGS: Heart is normal. Lungs are clear of infiltrate. There is no heart failure. There is no pleu ral effusion or pneumothorax. I see no rib fracture. IMPRESSION: No active cardiopulmonary disease. Normal right ribs.
[2020-10-02 18:02] VITALS: BP 132/62; PULSE 62
== END 2020-10-02 18:00 | disposition home or self-care (01) ==
LOC: EC 15:37
DX: S20.211A Contusion of right front wall of thorax, initial encounter (principal); S00.11XA Contusion of right eyelid and periocular area, initial encounter; I10 Essential (primary) hypertension; E78.5 Hyperlipidemia, unspecified; M19.90 Unspecified osteoarthritis, unspecified site; Z79.891 Long term (current) use of opiate analgesic; Z79.890 Hormone replacement therapy; Z79.899 Other long term (current) drug therapy; W01.198A Fall on same level from slipping, tripping and stumbling with subsequent striking against other object, initial encounter; Y93.01 Activity, walking, marching and hiking
CPT/HCPCS: 70450; 72125; 99284

== ENCOUNTER 2020-10-18 08:07 | Emergency (ER) | payer MEDICARE ==
[2020-10-18 08:16] VITALS: RESP 18; TEMP 98.2
[2020-10-18] MEDS ORDERED: ACETAMINOPHEN TAB 500 MG TAB PO STA (08:40)
--- NOTE | 2020-10-18 08:42 | ED ---
Fall HPI - General Chief Complaint: Fall Stated Complaint: Fall/7 steps/Head injury Time Seen by Provider: 10/18/20 08:18 Source: patient, family Mode of arrival: ambulatory - History of Present Illness Initial Comments: Patient is an 85-year-old female presenting to the emergency department after she had a fall today despite her to arrival. She states she felt a little lightheaded and then fell down about 7 of her stairs in her house. She states she fell forward and actually did a flip and landed on her back. She did hit the left side of her forehead. She remembers the whole thing, no loss of consciousness. She is not on blood thinners. She is complaining of some left- sided forehead pain where she had as well as some mild neck discomfort. She states she also found a pretty large bruise on her left knee, she has history of bilateral knee replacements. There is some soreness here. Also complaining of some mild thoracic discomfort and anterior chest wall pain where she hit. She denies any hip pain, no belly pain no nausea or vomiting. She does not feel di zzy or lightheaded right now. She states her pain is minimal. She denies any blurry vision. She has no further complaints. - Related Data Home Medications Medication Instructions Recorded Confirmed Aspirin 81 mg PO DAILY 02/15/14 10/18/20 Atorvastatin [Lipitor] 10 mg PO DAILY 02/15/14 10/18/20 Omeprazole 20 mg PO DAILY 02/15/14 10/18/20 Multivit with Calcium,Iron,Min 1 tab PO DAILY 01/30/16 10/18/20 [Women's Daily Multivitamin] Solifenacin Succinate [Vesicare] 10 mg PO DAILY 01/30/16 10/18/20 amLODIPine [Norvasc] 5 mg PO DAILY 04/28/17 10/18/20 Levothyroxine Sodium [Synthroid] 50 mcg PO HS 12/21/19 10/18/20 Amoxicillin 2,000 mg PO ONCE PRN 10/18/20 10/18/20 Cholecalciferol [Vitamin D3 (25 100 mcg PO DAILY 10/18/20 10/18/20 Mcg = 1000 Iu)] Allergies Allergy/AdvReac Type Severity Reaction Status Date / Time No Known Allergies Allergy Verified 10/18/20 09:03 Review of Systems ROS Statement: Those systems with pertinent positive or pertinent negative responses have been documented in the HPI. ROS Other: All systems not noted in ROS Statement are negative. Past Medical History Past Medical History: GI Bleed, Hyperlipidemia, Hypertension, Osteoarthritis (OA), Respiratory Disorder, Thyroid Disorder History of Any Multi-Drug Resistant Organisms: None Reported Past Surgical History: Hysterectomy, Joint Replacement, Orthopedic Surgery Additional Past Surgical History / Comment(s): cataracts removed, BILATERAL EYE SURGERY -(MEMBRANE SURGERY) , bilateral knee replacements Past Anesthesia/Blood Transfusion Reactions: No Reported Reaction Past Psychological History: No Psychological Hx Reported Smoking Status: Never smoker Past Alcohol Use History: Occasional Past Drug Use History: None Reported - Past Family History Father Family Medical History: No Reported History Brother(s) Family Medical History: Cancer, Deep Vein Thrombosis (DVT) Additional Family Medical History / Comment(s): BLADDER CANCER General Exam - General Exam Comments Initial Comments: GENERAL: Patient is well-developed and well-nourished. Patient is nontoxic and in no acute distress. HEAD: Patient has a hematoma noted to left side of the forehead, she has a mild abrasion to the area as well. EYES: Pupils equal round and reactive to light, extraocular movements intact, sclera anicteric, conjunctiva are normal. Eyelids were unremarkable. ENT: TMs normal, nares patent, oropharynx clear without exudates. Moist mucous membranes. NECK: Patient was placed in a c-collar upon arrival, after this was cleared she has some mild discomfort with active range of motion but does have full motion. Supple without lymphadenopathy or JVD. LUNGS: Unlabored respirations. Breath sounds clear to auscultation bilaterally and equal. No wheezes rales or rhonchi. HEART: Regular rate and rhythm without murmurs, rubs or gallops. ABDOMEN: Soft, nontender, normoactive bowel sounds. No guarding, no rebound. No masses appreciated. : Deferred MUSCULOSKELETAL: Patient has full active range of motion of bilateral lower extremities, she does have some bruising and hematoma noted to the left knee just distal to her joint line. This is tender to the touch. She is neurovascular intact. No pain of the upper extremities. She has mild discomfort of the anterior chest wall and thoracic spine. No clubbing or cyanosis. NEUROLOGICAL: Patient is alert and oriented x 3. Motor and sensory are also intact. Cranial nerves II through XII grossly intact. Symmetrical smile. Normal speech, normal gait. PSYCH: Normal mood, normal affect. SKIN: Warm, Dry, normal turgor, no rashes or lesions noted. Limitations: no limitations Course Vital Signs 10/18/20 10/18/20 10/18/20 08:10 09:04 09:44 Temperature 98.2 F Pulse Rate 88 69 68 Respiratory 18 18 18 Rate Blood Pressure 169/80 164/84 171/75 O2 Sat by Pulse 96 97 97 Oximetry Medical Decision Making - Medical Decision Making Patient is an 85-year-old female here after she fell down approximately 7 steps today at her home. There was no loss of consciousness, she is not on blood thinners. She is complaining of some mild head pain in her left forehead where she does have a small hematoma. Just complaining of some mild neck discomfort and some left knee pain. Her vitals are stable upon arrival. Fall a few weeks ago as well, she agrees to do some lab work today. EKG is normal sinus rhythm. Labs are all within normal limits except for a TSH is 10.5 with a free T4 1 0.3. Urine is negative for any acute process. CT of the brain shows no evidence of an acute intracranial hemorrhage or midline shift. Initial reading of the [place] reveals no acute fractures dislocations, however with review of the thoracic spine x-ray, there appears to be a very small compression fracture of T2. Patient does not have any pain at this level. Thoracic x-ray also reveals most likely chronic compression injury of the upper lumbar spine. Again patient has no pain with palpation of the lumbar thoracic spine. Chest x-ray and left knee x-ray revealed no acute process. Patient is given Tylenol and Toradol and has been resting comfortably. I discussed these findings with her. She can follow up with her PCP. I recommended alternating between Tylenol and Motrin for discomfort. She is agreeable with this plan of care. She does have an appointment with her PCP soon. Return parameters were discussed with parents verbalized understanding. Case discussed with Dr. Monique. - Lab Data Result diagrams: 10/18/20 08:40 10/18/20 08:40 Lab Results 10/18/20 10/18/20 10/18/20 Range/Units 08:40 08:40 08:40 WBC 5.9 (3.8-10.6) k/uL RBC 3.96 (3.80-5.40) m/uL Hgb 12.6 (11.4-16.0) gm/dL Hct 37.4 (34.0-46.0) % MCV 94.5 (80.0-100.0) fL MCH 31.8 (25.0-35.0) pg MCHC 33.7 (31.0-37.0) g/dL RDW 13.5 (11.5-15.5) % Plt Count 255 (150-450) k/uL MPV 7.8 Neutrophils % 68 % Lymphocytes % 22 % Monocytes % 4 % Eosinophils % 3 % Basophils % 1 % Neutrophils # 4.0 (1.3-7.7) k/uL Lymphocytes # 1.3 (1.0-4.8) k/uL Monocytes # 0.2 (0-1.0) k/uL Eosinophils # 0.2 (0-0.7) k/uL Basophils # 0.1 (0-0.2) k/uL PT 10.5 (9.0-12.0) sec INR 1.0 (<1.2) APTT 25.0 (22.0-30.0) sec Sodium (137-145) mmol/L Potassium (3.5-5.1) mmol/L Chloride (98-107) mmol/L Carbon Dioxide (22-30) mmol/L Anion Gap mmol/L BUN (7-17) mg/dL Creatinine (0.52-1.04) mg/dL Est GFR (CKD-EPI)AfAm (>60 ml/min/1.73 sqM) Est GFR (CKD-EPI)NonAf (>60 ml/min/1.73 sqM) Glucose (74-99) mg/dL Calcium (8.4-10.2) mg/dL Total Bilirubin (0.2-1.3) mg/dL AST (14-36) U/L ALT (4-34) U/L Alkaline Phosphatase (38-126) U/L Troponin I (0.000-0.034) ng/mL Total Protein (6.3-8.2) g/dL Albumin (3.5-5.0) g/dL TSH (0.465-4.680) mIU/L Free T4 (0.78-2.19) ng/dL Urine Color Light Yellow Urine Appearance Clear (Clear) Urine pH 6.5 (5.0-8.0) Ur Specific [place] 1.006 (1.001-1.035) Urine Protein Negative (Negative) Urine Glucose (UA) Negative (Negative) Urine Ketones Negative (Negative) Urine Blood Negative (Negative) Urine Nitrite Negative (Negative) Urine Bilirubin Negative (Negative) Urine Urobilinogen <2.0 (<2.0) mg/dL Ur Leukocyte Esterase Trace H (Negative) Urine RBC <1 (0-5) /hpf Urine WBC 4 (0-5) /hpf Hyaline Casts 1 (0-2) /lpf Urine Mucus Rare H (None) /hpf 10/18/20 10/18/20 Range/Units 08:40 08:40 WBC (3.8-10.6) k/uL RBC (3.80-5.40) m/uL Hgb (11.4-16.0) gm/dL Hct (34.0-46.0) % MCV (80.0-100.0) fL MCH (25.0-35.0) pg MCHC (31.0-37.0) g/dL RDW (11.5-15.5) % Plt Count (150-450) k/uL MPV Neutrophils % % Lymphocytes % % Monocytes % % Eosinophils % % Basophils % % Neutrophils # (1.3-7.7) k/uL Lymphocytes # (1.0-4.8) k/uL Monocytes # (0-1.0) k/uL Eosinophils # (0-0.7) k/uL Basophils # (0-0.2) k/uL PT (9.0-12.0) sec INR (<1.2) APTT (22.0-30.0) sec Sodium 137 (137-145) mmol/L Potassium 4.0 (3.5-5.1) mmol/L Chloride 105 (98-107) mmol/L Carbon Dioxide 24 (22-30) mmol/L Anion Gap 8 mmol/L BUN 10 (7-17) mg/dL Creatinine 0.75 (0.52-1.04) mg/dL Est GFR (CKD-EPI)AfAm 85 (>60 ml/min/1.73 sqM) Est GFR (CKD-EPI)NonAf 74 (>60 ml/min/1.73 sqM) Glucose 105 H (74-99) mg/dL Calcium 9.5 (8.4-10.2) mg/dL Total Bilirubin 0.7 (0.2-1.3) mg/dL AST 27 (14-36) U/L ALT 15 (4-34) U/L Alkaline Phosphatase 101 (38-126) U/L Troponin I <0.012 (0.000-0.034) ng/mL Total Protein 6.8 (6.3-8.2) g/dL Albumin 4.0 (3.5-5.0) g/dL TSH 10.500 H (0.465-4.680) mIU/L Free T4 1.30 (0.78-2.19) ng/dL Urine Color Urine Appearance (Clear) Urine pH (5.0-8.0) Ur Specific [place] (1.001-1.035) Urine Protein (Negative) Urine Glucose (UA) (Negative) Urine Ketones (Negative) Urine Blood (Negative) Urine Nitrite (Negative) Urine Bilirubin (Negative) Urine Urobilinogen (<2.0) mg/dL Ur Leukocyte Esterase (Negative) Urine RBC (0-5) /hpf Urine WBC (0-5) /hpf Hyaline Casts (0-2) /lpf Urine Mucus (None) /hpf - EKG Data EKG Comments: Normal sinus rhythm, normal ECG, no signs of an acute process. Similar to previous on 10/02/2020. No jugular rate 71, VA interval 162, QTC 418. Disposition Clinical Impression: Fall, Traumatic hematoma of forehead, Contusion of left knee, Thoracic com pression fracture Disposition: HOME SELF-CARE Condition: Stable Instructions (If sedation given, give patient instructions): Contusion in Adults (ED) Additional Instructions: Please return to the Emergency Department if symptoms worsen or any other concerns. Recommend alternating between Tylenol and Motrin for pain relief. Ice to the head and to the left knee. Please follow up with your primary care regarding your TSH level. Is patient prescribed a controlled substance at d/c from ED?: No Referrals: J Luis Aguayo DO [Primary Care Provider] - 1-2 days Time of Disposition: 11:28
[2020-10-18 08:56] LABS: Basophils # (A) 0.1 k/uL (0-0.2); Basophils % (A) 1 %; Eosinophils # (A) 0.2 k/uL (0-0.7); Eosinophils % (A) 3 %; HCT 37.4 % (34.0-46.0); HGB 12.6 gm/dL (11.4-16.0); Lymphocytes # (A) 1.3 k/uL (1.0-4.8); Lymphocytes % (A) 22 %; MCH 31.8 pg (25.0-35.0); MCHC 33.7 g/dL (31.0-37.0); MCV 94.5 fL (80.0-100.0); Mean Platelet Volume 7.8; Monocytes # (A) 0.2 k/uL (0-1.0); Monocytes % (A) 4 %; Neutrophils % (A) 68 %; Platelet Count 255 k/uL (150-450); RBC 3.96 m/uL (3.80-5.40); RDW 13.5 % (11.5-15.5); WBC 5.9 k/uL (3.8-10.6)
[2020-10-18 09:07] LABS: Prothrombin Time 10.5 sec (9.0-12.0)
[2020-10-18 09:13] LABS: Calcium 9.5 mg/dL (8.4-10.2); Total Bilirubin 0.7 mg/dL (0.2-1.3); Total Protein 6.8 g/dL (6.3-8.2)
--- NOTE | 2020-10-18 09:23 | CT ---
EXAMINATION TYPE: CT brain cspine wo con DATE OF EXAM: 10/18/2020 COMPARISON: CT brain and cervical spine October 02, 2020 HISTORY: Fall injury with headache and dizziness. CT DLP: 1351.5 mGycm. Automated Exposure Control for Dose Reduction was Utilized. TECHNIQUE: CT scan of the head and cervical spine are performed without contrast. FINDINGS: There is no acute intracranial hemorrhage or midline shift identified. Mild to moderate v entricular and sulcal prominence redemonstrated. Calcifications the level of bilateral basal ganglia and in the cerebellar folia are redemonstrated. New small to moderate size acute left frontal scalp h ematoma . The calvarium remains intact. Hyperostosis frontalis redemonstrated. The globes are intact and the visualized sinuses are clear. Cervical spine is redemonstrated in its entirety from C1 through upper thoracic levels and demonstrat es stable and satisfactory alignment without evidence of acute fracture or dislocation. Prevertebral soft tissue remains within normal limits. The C1-C2 articulation is within normal limits on the cor onal images. Vertebral body heights are maintained. Moderate disc space narrowing and spurring C4-C5 through C6-C7 levels redemonstrated. Posterior spurring inspiratory disc complex is redemonstrated e ffacing the anterior thecal sac at these levels. Axial images show multilevel uncovertebral facet deg enerative changes bilaterally similar to prior. Heterogeneous enlarged thyroid gland is again seen. L mary apices show no pneumothorax. IMPRESSION: 1. There is no acute fracture or dislocation evident in the cervical spine. 2. No acute intracranial hemorrhage or midline shift is seen. New small to moderate size acute left f rontal scalp hematoma.
[2020-10-18] MEDS ORDERED: KETOROLAC 15 MG/ML 1 ML VIAL IVP STA (09:47)
--- NOTE | 2020-10-18 10:21 | XR ---
EXAMINATION TYPE: XR chest 2V DATE OF EXAM: 10/18/2020 COMPARISON: Chest x-ray October 02, 2020 HISTORY: Pain after fall injury. TECHNIQUE: Frontal and lateral views of the chest are obtained. FINDINGS: Increased rotation on current study. There is no no suspicious focal air space opacity, pl eural effusion, or pneumothorax seen. The cardiac silhouette size is stable and within normal limits with atherosclerotic change aortic knob redemonstrated. The osseous structures remain demineralize d. IMPRESSION: No acute cardiopulmonary process.
[2020-10-18 10:28] LABS: T4, Free (Free Thyroxine) 1.3 ng/dL (0.78-2.19)
--- NOTE | 2020-10-18 10:44 | XR ---
EXAMINATION TYPE: XR knee complete LT DATE OF EXAM: 10/18/2020 CLINICAL HISTORY: Fall injury with pain. TECHNIQUE: Three views of the left knee are obtained. COMPARISON: None. FINDINGS: There is no acute fracture/dislocation evident in left knee. Metallic hardware from left k nee prosthesis satisfactory in position. The overlying soft tissue appears unremarkable. IMPRESSION: There is no acute fracture or dislocation in the left knee.
--- NOTE | 2020-10-18 11:03 | XR ---
EXAMINATION TYPE: XR thoracic spine 3 views DATE OF EXAM: 10/18/2020 COMPARISON: CT 11/26/2019 abdomen pelvis HISTORY: 85-year-old female fall, pain, dizziness TECHNIQUE: 3 views FINDINGS: Dextroconvex curvature upper thoracic spine. 12 rib bearing thoracic vertebral bodies. Pedicles are v isualized. Minimal superior endplate deformity upper third thoracic spine is age indeterminate. Mild vertebral body height loss upper lumbar spine, not clearly seen on the CT of 11/26/2019. Overall align ment is maintained. IMPRESSION: 1. T2 anterior superior vertebral body corner fracture seen on cervical spine CT of the same day is n ot apparent radiographically. 2. Age indeterminate, probably chronic minimal superior endplate deformity in the upper third thoraci c spine. Correlate for any focal pain at this level. 3. Additional age indeterminate mild compression injury of a vertebral body in the upper lumbar spine though noted to be new from 11/26/2019. Again, correlate for any pain at this level.
[2020-10-18 11:12] LABS: Appearance,Urine Clear (Clear); Bilirubin,Urine Negative (Negative); Blood,Urine Negative (Negative); Color,Urine Light Yellow; Glucose,Urine (UA) Negative (Negative); Hyaline Casts,Urine 1 /lpf (0-2); Ketones,Urine Negative (Negative); Leukocyte Esterase,Urine Trace (Negative); Mucus,Urine Rare /hpf; Nitrite,Urine Negative (Negative); PH, Urine 6.5 (5.0-8.0); Protein,Urine Negative (Negative); RBC,Urine <1 /hpf (0-5); Specific Gravity,Urine 1.006 (1.001-1.035); Urobilinogen,Urine <2.0 mg/dL (<2.0); WBC,Urine 4 /hpf (0-5)
[2020-10-18 11:46] VITALS: BP 152/70; PULSE 55
== END 2020-10-18 11:47 | disposition home or self-care (01) ==
LOC: EC 08:07
DX: S00.03XA Contusion of scalp, initial encounter (principal); S80.02XA Contusion of left knee, initial encounter; S22.000A Wedge compression fracture of unspecified thoracic vertebra, initial encounter for closed fracture; E78.5 Hyperlipidemia, unspecified; I10 Essential (primary) hypertension; M19.90 Unspecified osteoarthritis, unspecified site; W10.9XXA Fall (on) (from) unspecified stairs and steps, initial encounter; Y92.009 Unspecified place in unspecified non-institutional (private) residence as the place of occurrence of the external cause; Z79.82 Long term (current) use of aspirin; Z79.899 Other long term (current) drug therapy
CPT/HCPCS: 99284; 96374; 36415; 93005; 84439; 80053; 84443; 84484; 85025; 85610; 85730; 81001; 72070; 73562; 71046; 72125; 70450; J1885

== ENCOUNTER → 2021-04-03 | Outpatient (CLI) | payer MEDICARE ==
[2021-04-03 19:41] LABS: T4, Free (Free Thyroxine) 1.3 ng/dL (0.800-1.800)
== END | disposition home or self-care (01) ==
LOC: LABWHC1 11:24
PROVIDERS: ATTEND Internal Medicine Endocrinology, Diabetes & Metabolism
DX: E04.2 Nontoxic multinodular goiter (principal)
CPT/HCPCS: 36415; 84439; 84443

== ENCOUNTER → 2021-06-12 | Outpatient (CLI) | payer MEDICARE ==
--- NOTE | 2021-06-12 17:02 | US ---
EXAMINATION TYPE: US thyroid st tissue head/neck DATE OF EXAM: 06/12/2021 COMPARISON: NONE CLINICAL HISTORY: 85-year-old female E04.9 NONTOXIC GOITER.Thyroid nodules. TECHNIQUE: Multiple sonographic images of the thyroid gland are obtained. FINDINGS: GLAND SIZE: Right Lobe: 4.7 x 3.3 x 2.1 cm Overall Parenchyma: heterogenous Left Lobe: 6.0 x 2.3 x 2.0 cm Overall Parenchyma: heterogeneous Isthmus Thickness: .6 cm NODULES RIGHT: # of nodules measured on right: 2 1. 1.3 X .9 x 1.2 cm, mid medial, solid or almost completely solid, hypoechoic TR 4 nodule, which i s wider than tall, with smooth margins, without echogenic foci. Prior size: 1.3 x .9 x 1.3 cm 2. 1.7 X 1.4 x 0.9 cm, upper lateral, solid or almost completely solid, heterogeneous hypoechoic TR 4 nodule, which is wider than tall, with ill defined margins, without echogenic foci. Prior size: Not measured previously. In retrospect, there is a similar-appearing nodular area on th e prior exam measuring approximately 2.1 x 1.1 x 0.8 cm, not significantly changed. Very heterogenous nodule measured on previous study does not appear clearly in today's study. LEFT: # of nodules measured on left: 0 ISTHMUS: # of nodules measured in the isthmus: 0 Bilateral neck scanned, no evidence of lymphadenopathy. Bilateral diffusely heterogenous glands. IMPRESSION: 1. Findings suggest multinodular goiter. The gland is diffusely heterogeneous making accurate assessm ent of discrete nodules very difficult. 2. A couple relatively stable TR4 nodules in the right lobe measuring 1.7 and 1.3 cm.
== END | disposition home or self-care (01) ==
LOC: RADUSWWP 13:29
PROVIDERS: ATTEND Family Medicine
DX: E04.2 Nontoxic multinodular goiter (principal)
CPT/HCPCS: 76536

== ENCOUNTER 2021-07-27 09:24 | Day surgery (SDC) | payer MEDICARE ==
[2021-07-27 10:02] VITALS: RESP 16; TEMP 97.8
[2021-07-27] MEDS ORDERED: ALPRAZolam 0.25 MG TAB PO STA (10:08)
[2021-07-27 11:45] VITALS: BP 159/74; PULSE 66
--- NOTE | 2021-07-27 12:37 | US ---
ULTRASOUND GUIDED FNA THYROID BIOPSY: CLINICAL HISTORY: Request for 2 right-sided thyroid nodules FINDINGS: The procedure was explained to the patient. The risks, complications, benefits and alternatives were discussed and any questions were answered. Informed consent was obtained. Patient was placed supin e on the ultrasound table and prepped and draped in the usual sterile fashion. Utilizing a 25 gauge needle, five passes were made into the requested 2 right-sided thyroid nodules. Patient was stable throughout the procedure. Pathology is pending. All elements of maximal barrier technique were utilized. IMPRESSION: 1. Successful ultrasound guided FNA thyroid biopsy.
== END 2021-07-27 11:25 | disposition home or self-care (01) ==
LOC: RADPROMAIN 09:24
PROVIDERS: ATTEND Family Medicine
DX: E04.1 Nontoxic single thyroid nodule (principal)
CPT/HCPCS: 10005; 10006; 88173; 88305

== ENCOUNTER 2021-09-20 10:38 | Emergency (ER) | payer MEDICARE ==
[2021-09-20 10:59] VITALS: BP 155/71; PULSE 71; RESP 16; TEMP 98.2
[2021-09-20] MEDS ORDERED: LIDOCAINE 1% INJ 10MG/ML (5 ML VIAL-PF) SQ ONE (11:15)
--- NOTE | 2021-09-20 11:38 | CT ---
EXAMINATION TYPE: CT brain wo con, CT facial bones wo con DATE OF EXAM: 09/20/2021 HISTORY: fall injury with headache and facial pain CT DLP: combined DLP 700.3 mGycm. Automated Exposure Control for Dose Reduction was Utilized. TECHNIQUE: CT scan of the head and facial bones are performed without contrast. COMPARISON: CT brain October 18, 2020. CT facial bones August 08, 2018 FINDINGS: There is no acute intracranial hemorrhage or midline shift identified. There is mild diff use ventricular and sulcal prominence consistent with diffuse age-related cerebral atrophy. Calcifica tions in the bilateral basal ganglia and cerebellar hemispheres are redemonstrated. Some artifact ac ross the brain is seen extending anteriorly and inferiorly current study otherwise null-white matter differentiation is maintained. The calvarium is intact. Nasal bones are intact. Zygomatic arches are intact bilaterally. The orbital floors and cruz are int act. The globes are intact bilaterally. Intraconal fat is preserved. Pterygoid plates are intact. The maxillary intact. The mandible is intact. Temporomandibular joints are maintained bilaterally. Lack of upper dentition incidentally noted similar to prior IMPRESSION: 1. No acute intracranial hemorrhage or midline shift. 2. No acute displaced facial bone fracture.
--- NOTE | 2021-09-20 12:16 | XR ---
EXAMINATION TYPE: XR knee complete LT DATE OF EXAM: 09/20/2021 CLINICAL HISTORY: Pain after falling TECHNIQUE: Three views of the left knee are obtained. COMPARISON: Prior left knee x-ray October 18, 2020 FINDINGS: There is no acute fracture/dislocation evident in left knee. Metallic artifact from total left knee arthroplasty redemonstrated and is stable and satisfactory in position. Mild to moderate po sterior arteriovascular calcification is noted IMPRESSION: There is no acute fracture or dislocation in the left knee.
--- NOTE | 2021-09-20 12:30 | ED ---
General Adult HPI - General Chief complaint: Fall Stated complaint: Fall/hit head Time Seen by Provider: 09/20/21 11:03 Source: patient, RN notes reviewed, old records reviewed Mode of arrival: wheelchair Limitations: no limitations - History of Present Illness Initial comments: Patient is an 86-year-old female with past medical history remarkable for h ypertension, thyroid disorder who presents from his Department complaining of a mechanical trip and [place] the mall. Patient states she stubbed her toe and fell forward, landing on her left knee as well as her left face. She has a laceration located lateral to her left eye. Denies any jaw pain. Denies loss of consciousness. He is not on blood thinners. His no other injuries other than pain in her left knee and at the site of the laceration. Presents for further evaluation this time as she believe she requires stitches. - Related Data Home Medications Medication Instructions Recorded Confirmed Aspirin 81 mg PO DAILY 02/15/14 09/20/21 Atorvastatin [Lipitor] 10 mg PO DAILY 02/15/14 09/20/21 Omeprazole 20 mg PO DAILY 02/15/14 09/20/21 Multivit with Calcium,Iron,Min 1 tab PO DAILY 01/30/16 09/20/21 [Women's Daily Multivitamin] Solifenacin Succinate [Vesicare] 10 mg PO DAILY 01/30/16 09/20/21 Levothyroxine Sodium [Synthroid] 50 mcg PO HS 12/21/19 09/20/21 Cholecalciferol [Vitamin D3 (25 25 mcg PO DAILY 09/20/21 09/20/21 Mcg = 1000 Iu)] amLODIPine [Norvasc] 5 mg PO DAILY 09/20/21 09/20/21 Allergies Allergy/AdvReac Type Severity Reaction Status Date / Time No Known Allergies Allergy Verified 09/20/21 11:56 Review of Systems ROS Statement: Those systems with pertinent positive or pertinent negative responses have been documented in the HPI. Review of Systems: CONST: Denies fever EYES: Denies blurry vision ENT: Denies nasal congestion C/V: Denies Chest pain RESP: Denies shortness of breath GI: Denies abdominal pain : Denies dysuria SKIN: Endorses facial laceration MSK: Endorses left knee pain NEURO: Denies headache ROS Other: All systems not noted in ROS Statement are negative. Past Medical History Past Medical History: GI Bleed, Hyperlipidemia, Hypertension, Osteoarthritis (OA), Respiratory Disorder, Thyroid Disorder History of Any Multi-Drug Resistant Organisms: None Reported Past Surgical History: Hysterectomy, Joint Replacement, Orthopedic Surgery Additional Past Surgical History / Comment(s): cataracts removed, BILATERAL EYE SURGERY -(MEMBRANE SURGERY) , bilateral knee replacements Past Anesthesia/Blood Transfusion Reactions: No Reported Reaction Past Psychological History: No Psychological Hx Reported Smoking Status: Never smoker Past Alcohol Use History: Occasional Past Drug Use History: None Reported - Past Family History Father Family Medical History: No Reported History Brother(s) Family Medical History: Cancer, Deep Vein Thrombosis (DVT) Additional Family Medical History / Comment(s): BLADDER CANCER General Exam - General Exam Comments Initial Comments: General: Appears in no acute distress. HEAD: Proximal 4 cm linear laceration located lateral to the left eyebrow. Mild tenderness palpation on the site of laceration. No obvious step-offs or deformities of the face or skull. EYES: PERRLA, EOMI, conjunctiva normal, no discharge. Pupils are 3 mm and equal bilaterally. ENT: Hearing grossly intact, normal oropharynx. RESPIRATORY: Clear breath sounds bilaterally. No wheezes, rales, or rhonchi. C/V: Regular rate and rhythm. S1 and S2 auscultated, no edema, peripheral pulses 2+ and intact throughout ABD: Abd is soft, nontender, nondistended EXT: Normal range of motion, no obvious deformity. Mild tenderness to palpation over the left knee. Primarily medial aspect. History of a replacement. SKIN: 4 cm laceration located lateral to left eyebrow. Require sutures. NEURO: Alert and oriented x 4. Cranial nerves II-XII intact. No focal sensory or strength deficits. NIH of 0. GCS of 15. Limitations: no limitations Course Vital Signs 09/20/21 10:55 Temperature 98.2 F Pulse Rate 71 Respiratory 16 Rate Blood Pressure 155/71 O2 Sat by Pulse 96 Oximetry Procedures - Laceration Laceration #1 Consent Obtained: verbal consent Indication: laceration Site: face Size (cm): 4 Description: linear Depth: simple, single layer Anesthetic Used: lidocaine 1% Anesthesia Technique: local infiltration Pre-repair: irrigated extensively Type of Sutures: nylon Size of Sutures: 5-0 Number of Sutures: 4 Technique: simple, interrupted Patient Tolerated Procedure: well Medical Decision Making - Medical Decision Making Based on the patient's presentation physical exam, does appear she suffered a mechanical fall and currently has a laceration. She has pain in her left knee. Did recommend a CT brain and face which she accepted. Also obtain plain film of the left knee. Laceration was repaired by mid-level provider and seek additional note for further details. She refuses analgesia at this time. CT imaging was negative for any acute process. She does have chronic calcifications which are demonstrated on CT imaging. X-ray shows no acute process. I did the patient on the results. She like to go home. I believe this is reasonable. Instructed her to return to the emergency department in 7- 10 days for suture removal. She can use [id number] analgesia for pain. I instructed the patient to follow up with their PCP in the next 1-3 days. I explained that the patient should return to the emergency department if they experience any worsening symptoms. Strict return precautions were discussed with the patient. The patient expressed understanding of these instructions. I answered all questions that the patient had. The patient was discharged home in good condition with their prescriptions and follow up information. Disposition Clinical Impression: Fall, Laceration, Musculoskeletal pain Disposition: HOME SELF-CARE Condition: Good Instructions (If sedation given, give patient instructions): Care For Your Stitches (ED), Laceration (ED), Fall Prevention (ED) Additional Instructions: return for suture removal in 7 days to ER or PCP Is patient prescribed a controlled substance at d/c from ED?: No Referrals: J Luis Aguayo DO [Primary Care Provider] - 1-2 days Time of Disposition: 12:31
== END 2021-09-20 12:48 | disposition home or self-care (01) ==
LOC: EC 10:38
DX: S01.112A Laceration without foreign body of left eyelid and periocular area, initial encounter (principal); M25.562 Pain in left knee; I10 Essential (primary) hypertension; E78.5 Hyperlipidemia, unspecified; M19.90 Unspecified osteoarthritis, unspecified site; E07.9 Disorder of thyroid, unspecified; Z79.82 Long term (current) use of aspirin; Z79.890 Hormone replacement therapy; Z79.899 Other long term (current) drug therapy; W01.0XXA Fall on same level from slipping, tripping and stumbling without subsequent striking against object, initial encounter; Y92.59 Other trade areas as the place of occurrence of the external cause
CPT/HCPCS: 70450; 70486

== ENCOUNTER → 2022-02-06 | Outpatient (CLI) | payer MEDICARE ==
--- NOTE | 2022-02-07 07:25 | US ---
EXAMINATION TYPE: US thyroid st tissue head/neck DATE OF EXAM: 02/06/2022 COMPARISON: NONE CLINICAL HISTORY: E04.2 NONTOXIC MULTINODULAR GOITER. Thyroid nodules GLAND SIZE: Right Lobe: 4.6 x 2.3 x 2.5 cm Overall Parenchyma: heterogenous Left Lobe: 4.9 x 2.2 x 1.8 cm Overall Parenchyma: heterogeneous Isthmus Thickness: 0.7 cm NODULES RIGHT: # of nodules measured on right: 2 1. 1.4 X 0.9 x 1.2 cm, upper medial, solid or almost completely solid, hypoechoic nodule, which is wider than tall, with smooth margins, without echogenic foci. Prior size: 1.3 x 0.9 x 1.2 cm 2. 1.3 X 1.0 x 1.1 cm, upper lateral, solid or almost completely solid, hypoechoic nodule, which is wider than tall, with ill-defined margins, without echogenic foci. Prior size: 1.7 x 1.4 x 0.9 cm LEFT: # of nodules measured on left: 1 1. 0.9 X 0.6 x 0.9 cm, lower lateral, solid or almost completely solid, hypoechoic nodule, which is wider than tall, with smooth margins, without echogenic foci. Prior size: no previous ISTHMUS: # of nodules measured in the isthmus: 0 Bilateral neck scanned, no evidence of lymphadenopathy. IMPRESSION: Stable nonspecific thyroid nodularity and heterogeneity.
== END | disposition home or self-care (01) ==
LOC: RADUSWWP 15:35
PROVIDERS: ATTEND Family Medicine
DX: E04.2 Nontoxic multinodular goiter (principal)
CPT/HCPCS: 76536

== ENCOUNTER → 2022-09-17 | Outpatient (CLI) | payer MEDICARE ==
--- NOTE | 2022-09-17 15:39 | US ---
EXAMINATION TYPE: US thyroid st tissue head/neck DATE OF EXAM: 09/17/2022 COMPARISON: NONE CLINICAL INDICATION: Female, 86 years old with history of E04.2 GOITER; on thy meds. Nodules. GLAND SIZE: Right Lobe: 5.5 x 3.0 x 2.2 cm Overall Parenchyma: heterogenous Left Lobe: 5.3 x 2.2 x 1.9 cm Overall Parenchyma: heterogenous Isthmus Thickness: 0.7 cm NODULES RIGHT: # of nodules measured on right: 1 nodule seen on previous exam not well identified on today' s exam. 1. 1.5 X .8 x 1.4 cm, upper medial, solid or almost completely solid, hypoechoic nodule, which is w ider than tall, with smooth margins, without echogenic foci. Prior size: 1.4 x .9 x 1.2 cm LEFT: # of nodules measured on left: 0 Nodule seen on previous exam not seen today. ISTHMUS: # of nodules measured in the isthmus: 0.7 Bilateral neck scanned, no evidence of lymphadenopathy. IMPRESSION: Moderately suspicious nodule right lobe thyroid. Fine-needle aspiration can be performed. 2017 ACR TI-RADS LEVEL: TR-RADS 4 - Moderately Suspicious: Follow if > 1 cm, FNA if > 1.5 cm *Highest TI-RADS level nodule reported
== END | disposition home or self-care (01) ==
LOC: RADUSWWP 14:48
PROVIDERS: ATTEND Family Medicine
DX: E04.2 Nontoxic multinodular goiter (principal)
CPT/HCPCS: 76536

== ENCOUNTER → 2023-04-09 | Outpatient (CLI) | payer MEDICARE ==
--- NOTE | 2023-04-09 16:00 | US ---
EXAMINATION TYPE: US thyroid st tissue head/neck DATE OF EXAM: 04/09/2023 COMPARISON: US 09/17/2022, 02/06/2022, 07/27/2021, 06/12/2021 CLINICAL INDICATION: Female, 87 years old with history of E04.1 NONTOXIC SINGLE THYROID NODULE; Patie nt denies any signs or symptoms at this time GLAND SIZE: Right Lobe: 4.7 x 2.9 x 2.5 cm Overall Parenchyma: heterogenous Left Lobe: 5.2 x 2.4 x 2.1 cm Overall Parenchyma: heterogenous Isthmus Thickness: 0.9 cm NODULES RIGHT: # of nodules measured on right: 1 1. 1.7 X 1.0 x 1.4 cm, mid medial, solid or almost completely solid, hypoechoic nodule, which is wi rosalba than tall, with smooth margins, with echogenic foci. Prior size: 1.5 x 0.8 x 1.4 cm LEFT: # of nodules measured on left: 0 ISTHMUS: # of nodules measured in the isthmus: 0 Bilateral neck scanned, no evidence of lymphadenopathy. IMPRESSION: 1. Marginal increase in size of previously biopsied right thyroid lobe 1.7 cm nodule. No new nodules identified. 2. Diffusely heterogenous thyroid gland redemonstrated.
== END | disposition home or self-care (01) ==
LOC: RADUSWWP 15:28
PROVIDERS: ATTEND Family Medicine
DX: E04.1 Nontoxic single thyroid nodule (principal); E07.89 Other specified disorders of thyroid
CPT/HCPCS: 76536

== ENCOUNTER → 2023-10-09 | Outpatient (CLI) | payer MEDICARE ==
--- NOTE | 2023-10-09 13:42 | US ---
EXAMINATION TYPE: US thyroid st tissue head/neck DATE OF EXAM: 10/09/2023 COMPARISON: Multiple thyroid ultrasounds with most recent 04/09/23 CLINICAL INDICATION: Female, 88 years old with history of E04.1 NONTOXIC SINGLE THYROID [id number] N ONTOXIC SINGLE TH; Nontoxic single thyroid GLAND SIZE: Right Lobe: 4.2 x 1.9 x 2.4 cm Overall Parenchyma: heterogeneous Left Lobe: 4.7 x 1.9 x 1.8 cm Overall Parenchyma: heterogeneous Isthmus Thickness: 0.7 cm NODULES RIGHT: # of nodules measured on right: 1 1. 1.4 X 1.2 x 0.7 cm, mid medial, solid or almost completely solid, very hypoechoic nodule, which is wider than tall, with lobulated or irregular margins, without echogenic foci. Prior size: 1.7 x 1.4 x 1.0 cm LEFT: # of nodules measured on left: 0 ISTHMUS: # of nodules measured in the isthmus: 0 Bilateral neck scanned, no evidence of lymphadenopathy. IMPRESSION: 1. Mild decrease in size of previously biopsied right thyroid lobe 1.4 cm nodule. No new nodules pastora ntified. 2. Diffusely heterogenous thyroid gland redemonstrated.
== END | disposition home or self-care (01) ==
LOC: RADUSWWP 12:58
PROVIDERS: ATTEND Family Medicine
DX: E04.1 Nontoxic single thyroid nodule (principal)
CPT/HCPCS: 76536

== ENCOUNTER 2024-01-24 03:03 | Observation (INO) | payer MEDICARE ==
[2024-01-24 05:16] LABS: Basophils % (A) 1 %; Eosinophils # (A) 0.1 k/uL (0-0.7); Eosinophils % (A) 2 %; HCT 38.2 % (34.0-46.0); HGB 12.5 gm/dL (11.4-16.0); Lymphocytes # (A) 1.3 k/uL (1.0-4.8); Lymphocytes % (A) 27 %; MCH 31.2 pg (25.0-35.0); MCHC 32.7 g/dL (31.0-37.0); MCV 95.4 fL (80.0-100.0); Mean Platelet Volume 7.5; Monocytes # (A) 0.3 k/uL (0-1.0); Monocytes % (A) 5 %; Neutrophils # (A) 2.9 k/uL (1.3-7.7); Neutrophils % (A) 62 %; Platelet Count 234 k/uL (150-450); RDW 13.5 % (11.5-15.5); WBC 4.7 k/uL (3.8-10.6)
[2024-01-24 05:24] LABS: ALT 13 U/L (4-34); AST 25 U/L (14-36); African American GFR (CKD) 69 (>60 ml/min/1.73 sqM); Albumin 3.9 g/dL (3.5-5.0); Alkaline Phosphatase 78 U/L (38-126); Anion Gap 4 mmol/L; Blood Urea Nitrogen 16 mg/dL (7-17); Calcium 9.2 mg/dL (8.4-10.2); Carbon Dioxide 27 mmol/L (22-30); Chloride 109 mmol/L (98-107); Glucose 100 mg/dL (74-99); Magnesium 1.8 mg/dL (1.6-2.3); Non-African American GFR(CKD) 60 (>60 ml/min/1.73 sqM); Potassium 3.6 mmol/L (3.5-5.1); Sodium 140 mmol/L (137-145); Total Protein 6.8 g/dL (6.3-8.2)
[2024-01-24 05:31] LABS: INR 1.1 (<1.2); Partial Thromboplastin Time 26.6 sec (22.0-30.0); Prothrombin Time 11.5 sec (10.0-12.5)
[2024-01-24 05:34] LABS: NT-Pro-B-Type Natriuretic Pept 176 pg/mL
[2024-01-24 06:33] LABS: Appearance,Urine Clear (Clear); Bacteria,Urine Rare /hpf; Bilirubin,Urine Negative (Negative); Blood,Urine Negative (Negative); Color,Urine Colorless; Glucose,Urine (UA) Negative (Negative); Ketones,Urine Negative (Negative); Leukocyte Esterase,Urine Large (Negative); Nitrite,Urine Positive (Negative); Protein,Urine Negative (Negative); RBC,Urine 3 /hpf (0-5); Specific Gravity,Urine 1.009 (1.001-1.035); Squamous Epithelial Cell,Urine 1 /hpf (0-4); Urobilinogen,Urine <2.0 mg/dL (<2.0); WBC,Urine 12 /hpf (0-5)
--- NOTE | 2024-01-24 06:33 | XR ---
EXAMINATION TYPE: XR chest 1V portable DATE OF EXAM: 01/24/2024 COMPARISON: Chest x-ray October 18, 2020 HISTORY: Shortness of breath TECHNIQUE: Single frontal view of the chest is obtained. FINDINGS: There is no focal air space opacity, pleural effusion, or pneumothorax seen. The cardiac silhouette size is upper limits of normal with atherosclerotic change in the aortic knob seen. The osseous structures remain demineralized. IMPRESSION: No acute process. No significant change from prior. [facility], , 01/24/2024 6:31 AM
--- NOTE | 2024-01-24 06:36 | CT ---
EXAMINATION TYPE: CT brain wo con DATE OF EXAM: 01/24/2024 HISTORY: Pt presents to ER via EMS. Pt complains of bilateral leg weakness, with worse weakness in th e left leg, beginning yesterday morning after water aerobics. Pt had attempted to ambulate to the [facility] hroom this evening and fell due to left leg weakness. Pt denies LOC and does not take a blood thinner , denies any pain. Denies dizziness or vertigo. Equal strength bilaterally, pulses present in affecte d extremity. GCS [address] DLP: 1477.9 between both mGycm. Automated Exposure Control for Dose Reduction was Utilized. TECHNIQUE: CT scan of the head is performed without contrast. COMPARISON: Prior CT head September 20, 2021 FINDINGS: There is no acute intracranial hemorrhage or midline shift identified. Bilateral basal ga nglia and cerebellar calcifications are redemonstrated. There is mild diffuse ventricular and sulcal prominence redemonstrated. Yen-white matter differentiation is maintained. Bilateral aphakia is seen . The visualized sinuses are clear. IMPRESSION: No acute intracranial hemorrhage or midline shift. No significant change from prior. [facility], , 01/24/2024 6:34 AM
--- NOTE | 2024-01-24 06:39 | CT ---
EXAMINATION TYPE: CT angio head neck DATE OF EXAM: 01/24/2024 HISTORY: Pt presents to ER via EMS. Pt complains of bilateral leg weakness, with worse weakness in th e left leg, beginning yesterday morning after water aerobics. Pt had attempted to ambulate to the [facility] hroom this evening and fell due to left leg weakness. Pt denies LOC and does not take a blood thinner , denies any pain. Denies dizziness or vertigo. Equal strength bilaterally, pulses present in affecte d extremity. GCS 15 upon arrival. COMPARISON: NONE CT DLP: 1477.9 between both mGycm. Automated Exposure Control for Dose Reduction was Utilized. TECHNIQUE: CTA scan of the head and neck is performed with IV Contrast, patient injected with 65 mL of Isovue 370, axial images are obtained, coronal and sagittal reformatted images are reviewed. 3D re constructed images are created on an independent workstation and reviewed. FINDINGS: Carotid/Vascular Structures: Moderate mixed plaque in aortic arch. There is bovine type arch which is normal variant. No significant stenosis at this level. Tortuous course to the proximal right common carotid artery. No significant plaque or stenosis in the common carotid arteries bilaterally. Mild Peripheral calcified plaque left carotid bulb. Mild peripheral calcified plaque proximal right i nternal carotid artery. No significant stenosis. Patent external carotid arteries bilaterally. Mild c alcified plaque bilateral distal internal carotid arteries without significant stenosis. Vertebral ar teries are contiguous and codominant to the basilar junction. No linear hypodensity to suggest dissec tion. Patent right posterior communicating artery and anterior communicating artery. Hypoplastic right A1 s egment with filling of the right A2 segment due to patent anterior communicating artery. No large ves damari occlusion or aneurysm at the level of the [place]. Other: There is S-shaped scoliosis. There is multilevel spurring and disc space narrowing in the mid to lower cervical spine. Bilateral aphakia is present. IMPRESSION: No significant vascular abnormality is seen. NASCET criteria was used in interpretation of this exam? [facility], , 01/24/2024 6:37 AM
[2024-01-24] MEDS ORDERED: NALOXONE 0.4 MG/ML 1 ML VIAL IV PRN (06:46)
[2024-01-24] MEDS ORDERED: traMADol 50 MG TAB PO PRN (06:46)
[2024-01-24] MEDS ORDERED: bisacodyL 5 MG TABLET.DR PO PRN (06:46)
[2024-01-24] MEDS ORDERED: MAG HYDROX/AL HYDROX/SIMETH 30 ML CUP PO PRN (06:46)
--- NOTE | 2024-01-24 06:51 | ED ---
Fall HPI - General Chief Complaint: Fall Stated Complaint: L Leg Injury Time Seen by Provider: 01/24/24 03:08 Source: patient, EMS Mode of arrival: EMS - History of Present Illness Initial Comments: Patient is a pleasant 88-year-old female the past medical history of thyroid disorder presenting today for weakness. Provided by patient and daughter. Patient was at water aerobics yesterday when she noticed that her left lower extremity felt weaker than her right. She states that she has chronic weakness in her lower extremity however it was worse than normal. Then yesterday evening patient was trying to stand up from her recliner when her legs "gave out from under her", causing her to sit back into her recliner. She then walked to the bathroom where her legs gave out again, causing her to fall and land on her buttocks. She denies head or neck injury or LOC. Patient states that she has had intermittent word finding difficulty but states this has been ongoing for "awh ile" and did not start in the last 24 hours. She denies numbness or weakness in her other extremities, loss of vision, slurred speech, headache, dizziness, chest pain, abdominal pain, nausea, vomiting, diarrhea, black or bloody stools, recent fevers or chills, recent illness, dysuria. She currently denies back pain or injuries from her fall. - Related Data Home Medications Medication Instructions Recorded Confirmed Aspirin 81 mg PO DAILY 02/15/14 01/24/24 Atorvastatin [Lipitor] 10 mg PO HS 02/15/14 01/24/24 Omeprazole 20 mg PO DAILY 02/15/14 01/24/24 Solifenacin Succinate [Vesicare] 10 mg PO DAILY PRN 01/30/16 01/24/24 Levothyroxine Sodium [Synthroid] 75 mcg PO DAILY 01/24/24 01/24/24 Vitamin D3(Unknown Dose) 1 tab PO DAILY 01/24/24 01/24/24 amLODIPine [Norvasc] 10 mg PO DAILY 01/24/24 01/24/24 Allergies Allergy/AdvReac Type Severity Reaction Status Date / Time No Known Allergies Allergy Verified 01/24/24 09:51 Review of Systems ROS Statement: Those systems with pertinent positive or pertinent negative responses have been documented in the HPI. ROS Other: All systems not noted in ROS Statement are negative. Past Medical History Past Medical History: GI Bleed, Hyperlipidemia, Hypertension, Osteoarthritis (OA), Respiratory Disorder, Thyroid Disorder History of Any Multi-Drug Resistant Organisms: None Reported Past Surgical History: Hysterectomy, Joint Replacement, Orthopedic Surgery Additional Past Surgical History / Comment(s): cataracts removed, BILATERAL EYE SURGERY -(MEMBRANE SURGERY) , bilateral knee replacements Past Anesthesia/Blood Transfusion Reactions: No Reported Reaction Past Psychological History: No Psychological Hx Reported Smoking Status: Never smoker Past Alcohol Use History: Occasional Past Drug Use History: None Reported - Past Family History Father Family Medical History: No Reported History Brother(s) Family Medical History: Cancer, Deep Vein Thrombosis (DVT) Additional Family Medical History / Comment(s): BLADDER CANCER General Exam - General Exam Comments Initial Comments: PE: CONSTITUTIONAL: No apparent distress, well appearing SKIN: Warm, dry, no jaundice, hives or petechiae EYES: Pupils are equally round, extraocular movements intact without nystagmus, clear conjunctiva, non-icteric sclera HENT: Normocephalic, atraumatic, moist mucus membranes, oropharynx clear without exudates NECK: , Full range of motion, normal appearance PULMONARY: Clear to auscultation without wheezes, rhonchi, or rales, normal excursion, no accessory muscle use and no stridor CARDIOVASCULAR: Regular rate, rhythm, normal S1 and S2. No appreciated murmurs, rubs or gallops. Strong radial pulses with intact distal perfusion. No lower extremity edema GASTROINTESTINAL: Soft, active bowel sounds throughout, non-tender, non- distended, no palpable masses, no rebound or guarding. No hepatosplenomegaly GENITOURINARY: MUSCULOSKELETAL: Extremities have no gross deformity, redness, or swelling. Plus nonpitting edema of the distal bilateral LE, no midline spinal TTP, does have clonus in LLE, -babinski sign bilat, difficulty obtaining patellar reflexes 2/2 patient's position, though appear 2+ bilaterally, 4/5 strength in LLE, 5/5 strength in RLE NEUROLOGIC:_a/o x 3, GCS 15, normal mentation and speech. Moves all extremities x 4 without motor or sensory deficit, with exception of above, cranial nerves: II (visual vance without defects), III, IV and (extraocular movements are intact, pupils are equal with normal reaction to light), V (intact facial sensation and jaw opening), VII (no facial droop), IX and X (normal palate movement, midline uvula, normal voice), XI (symmetrical shoulder shrug and lateral head rotation against resistance), XII (midline tongue protrusion). Motor strength is 5/5 in all extremities. No abnormal movements. Normal muscle tone. Sensation to light touch is intact bilaterally. No cerebellar signs ([id number], [id number], are normal) PSYCHIATRIC:_normal mood and affect, thought process is clear and linear Course Vital Signs 01/24/24 01/24/24 01/24/24 03:07 06:42 08:00 Temperature 98.3 F Pulse Rate 70 71 70 Pulse Rate [ Left] Respiratory 16 16 20 Rate Blood Pressure 147/67 167/76 167/67 Blood Pressure [Right Arm] O2 Sat by Pulse 98 98 98 Oximetry 01/24/24 01/24/24 01/24/24 11:00 12:00 13:00 Temperature 98.4 F Pulse Rate 60 75 Pulse Rate [ 67 Left] Respiratory 20 16 16 Rate Blood Pressure 118/68 110/60 Blood Pressure 149/63 [Right Arm] O2 Sat by Pulse 98 98 97 Oximetry 01/24/24 01/24/24 01/24/24 14:00 15:00 17:00 Temperature Pulse Rate 72 72 78 Pulse Rate [ Left] Respiratory 20 20 20 Rate Blood Pressure 167/79 135/60 135/80 Blood Pressure [Right Arm] O2 Sat by Pulse 98 96 98 Oximetry 01/24/24 01/24/24 01/24/24 18:00 20:00 20:08 Temperature 98.4 F Pulse Rate 75 68 Pulse Rate [ 67 Left] Respiratory 16 16 16 Rate Blood Pressure 146/71 132/63 Blood Pressure 149/63 [Right Arm] O2 Sat by Pulse 96 97 95 Oximetry Medical Decision Making - Medical Decision Making Was pt. sent in by a medical professional or institution (, PA, FITTING ROOM ASSOCIATE, urgent care, hospital, or custodial...) When possible be specific @ -No Did you speak to anyone other than the patient for history (EMS, parent, family, police, friend...)? What history was obtained from this source Spoke with patient's daughter (who provided history Did you review nursing and triage notes (agree or disagree)? Why? @ -I reviewed and agree with nursing and triage notes Were old charts reviewed (outside hosp., previous admission, EMS record, old EKG, old radiological studies, urgent care reports/EKG's, custodial records)? Report findings @Medical records reviewed Differential Diagnosis (chest pain, altered mental status, abdominal pain women, abdominal pain men, vaginal bleeding, weakness, fever, dyspnea, syncope, headache, dizziness, GI bleed, back pain, seizure, CVA, palpatations, mental health, musculoskeletal)? Differential Weakness: Hypoglycemia, shock, sepsis, hyponatremia, anemia, infection, HI, ETOH, adverse medicine reaction, overdose, stroke, this is not meant to be an all-inclusive list. EKG interpreted by me (3pts min.). @ -As above X-rays interpreted by me (1pt min.). @Mild cardiomegaly CT interpreted by me (1pt min.). @ -No evidence of hemorrhage or large vessel occlusion U/S interpreted by me (1pt. min.). @ -None done What testing was considered but not performed or refused? (CT, X-rays, U/S, labs)? Why? @ -None What meds were considered but not given or refused? Why? @ -None Did you discuss the management of the patient with other professionals (professionals i.e. , PA, FITTING ROOM ASSOCIATE, lab, RT, psych nurse, psychologist social, external grinder tool, teacher, hydrological technical officer, case preparer and liner)? Give summary @ -No Was smoking cessation discussed for >3mins.? @ -No Was critical care preformed (if so, how long)? @ -No Were there social determinants of health that impacted care today? How? (Homelessness, low income, unemployed, alcoholism, drug addiction, transportat ion, low edu. Level, literacy, decrease access to med. care, custodial, rehab)? @ -No Was there de-escalation of care discussed even if they declined (Discuss DNR or withdrawal of care, Hospice)? @ -No What co-morbidities impacted this encounter? (DM, HTN, Smoking, COPD, CAD, Cancer, CVA, ARF, Chemo, Hep., AIDS, mental health diagnosis, sleep apnea, morbid obesity)? @ -Thyroid disorder Was patient admitted / discharged? Hospital course, mention meds given and route, prescriptions, significant lab abnormalities, going to OR and other pertinent info. @ -Admission- This is a pleasant 88-year-old female presenting for acute on chronic weakness, worse in the left lower extremity. On assessment patient well-appearing in no acute distress. Does have 4 out of 5 strength in left lower extremity compared to the right lower extremity, otherwise no neurologic deficits. Given patient states has had intermittent difficulty with word finding and unequal strength in bilat LE, will obtain CT/CTA, a stroke alert was not called as patient's intermittent word finding difficulty and left lower extremity weakness have been ongoing for greater than 24 hours. I suspect weakness is most likely secondary to radiculopathy and deconditioning as patient's daughter states that patient's generalized weakness has been progressively getting worse over the last 6 months however cannot rule out CVA. Comprehensive labs chest x-ray ordered additionally. Patient and daughter agreeable plan of care. I discussed with them anticipated disposition given patient does live alone and is now too weak to walk. Patient and daughter feel patient be better served admitted for PT/OT/SNF evaluation. Labs and imaging reviewed. TSH elevated, 10.3. Free T4 added and was within normal limits, otherwise grossly within normal limits. Additonal Abnormal values not concerning for acute pathology related to presenting complaint. Stated patient and daughter to findings and plan for admission. They are agreeable with plan. Case discussed with Dr. Velazquez, kindly accepts for admission. Of note UA did show positive nitrates, large leukocyte esterase and rare bacteria. Cefepime ordered. Undiagnosed new problem with uncertain prognosis? @ -No Drug Therapy requiring intensive monitoring for toxicity (Heparin, Nitro, Insulin, Cardizem)? @ -No Were any procedures done? @ -No Diagnosis/symptom? @ -Generalized weakness, UTI Acute, or Chronic, or Acute on Chronic? @ Acute on chronic, acute UTI Uncomplicated (without systemic symptoms) or Complicated (systemic symptoms)? @ -Complicated Side effects of treatment? @ -No Exacerbation, Progression, or Severe Exacerbation? @ -No Poses a threat to life or bodily function? How? (Chest pain, USA, HI, pneumonia, PE, COPD, DKA, ARF, appy, cholecystitis, CVA, Diverticulitis, Homicidal, Suicidal, threat to staff... and all critical care pts) @ -Potentially - Lab Data Result diagrams: 01/24/24 05:03 01/24/24 05:03 Lab Results 01/24/24 01/24/24 01/24/24 Range/Units 05:03 05:03 05:03 WBC 4.7 (3.8-10.6) k/uL RBC 4.00 (3.80-5.40) m/uL Hgb 12.5 (11.4-16.0) gm/dL Hct 38.2 (34.0-46.0) % MCV 95.4 (80.0-100.0) fL MCH 31.2 (25.0-35.0) pg MCHC 32.7 (31.0-37.0) g/dL RDW 13.5 (11.5-15.5) % Plt Count 234 (150-450) k/uL MPV 7.5 Neutrophils % 62 % Lymphocytes % 27 % Monocytes % 5 % Eosinophils % 2 % Basophils % 1 % Neutrophils # 2.9 (1.3-7.7) k/uL Lymphocytes # 1.3 (1.0-4.8) k/uL Monocytes # 0.3 (0-1.0) k/uL Eosinophils # 0.1 (0-0.7) k/uL Basophils # 0.0 (0-0.2) k/uL PT 11.5 (10.0-12.5) sec INR 1.1 (<1.2) APTT 26.6 (22.0-30.0) sec Sodium 140 (137-145) mmol/L Potassium 3.6 (3.5-5.1) mmol/L Chloride 109 H (98-107) mmol/L Carbon Dioxide 27 (22-30) mmol/L Anion Gap 4 mmol/L BUN 16 (7-17) mg/dL Creatinine 0.88 (0.52-1.04) mg/dL Est GFR (CKD-EPI)AfAm 69 (>60 ml/min/1.73 sqM) Est GFR (CKD-EPI)NonAf 60 (>60 ml/min/1.73 sqM) Glucose 100 H (74-99) mg/dL Calcium 9.2 (8.4-10.2) mg/dL Magnesium 1.8 (1.6-2.3) mg/dL Total Bilirubin 1.0 (0.2-1.3) mg/dL AST 25 (14-36) U/L ALT 13 (4-34) U/L Alkaline Phosphatase 78 (38-126) U/L Troponin I (0.000-0.034) ng/mL NT-Pro-B Natriuret Pep 176 pg/mL Total Protein 6.8 (6.3-8.2) g/dL Albumin 3.9 (3.5-5.0) g/dL TSH 10.300 H (0.465-4.680) mIU/L Free T4 (0.78-2.19) ng/dL Urine Color Urine Appearance (Clear) Urine pH (5.0-8.0) Ur Specific [place] (1.001-1.035) Urine Protein (Negative) Urine Glucose (UA) (Negative) Urine Ketones (Negative) Urine Blood (Negative) Urine Nitrite (Negative) Urine Bilirubin (Negative) Urine Urobilinogen (<2.0) mg/dL Ur Leukocyte Esterase (Negative) Urine RBC (0-5) /hpf Urine WBC (0-5) /hpf Ur Squamous Epith Cells (0-4) /hpf Urine Bacteria (None) /hpf 01/24/24 01/24/24 01/24/24 Range/Units 05:03 05:03 06:13 WBC (3.8-10.6) k/uL RBC (3.80-5.40) m/uL Hgb (11.4-16.0) gm/dL Hct (34.0-46.0) % MCV (80.0-100.0) fL MCH (25.0-35.0) pg MCHC (31.0-37.0) g/dL RDW (11.5-15.5) % Plt Count (150-450) k/uL MPV Neutrophils % % Lymphocytes % % Monocytes % % Eosinophils % % Basophils % % Neutrophils # (1.3-7.7) k/uL Lymphocytes # (1.0-4.8) k/uL Monocytes # (0-1.0) k/uL Eosinophils # (0-0.7) k/uL Basophils # (0-0.2) k/uL PT (10.0-12.5) sec INR (<1.2) APTT (22.0-30.0) sec Sodium (137-145) mmol/L Potassium (3.5-5.1) mmol/L Chloride (98-107) mmol/L Carbon Dioxide (22-30) mmol/L Anion Gap mmol/L BUN (7-17) mg/dL Creatinine (0.52-1.04) mg/dL Est GFR (CKD-EPI)AfAm (>60 ml/min/1.73 sqM) Est GFR (CKD-EPI)NonAf (>60 ml/min/1.73 sqM) Glucose (74-99) mg/dL Calcium (8.4-10.2) mg/dL Magnesium (1.6-2.3) mg/dL Total Bilirubin (0.2-1.3) mg/dL AST (14-36) U/L ALT (4-34) U/L Alkaline Phosphatase (38-126) U/L Troponin I <0.012 (0.000-0.034) ng/mL NT-Pro-B Natriuret Pep pg/mL Total Protein (6.3-8.2) g/dL Albumin (3.5-5.0) g/dL TSH (0.465-4.680) mIU/L Free T4 1.02 (0.78-2.19) ng/dL Urine Color Colorless Urine Appearance Clear (Clear) Urine pH 7.0 (5.0-8.0) Ur Specific [place] 1.009 (1.001-1.035) Urine Protein Negative (Negative) Urine Glucose (UA) Negative (Negative) Urine Ketones Negative (Negative) Urine Blood Negative (Negative) Urine Nitrite Positive H (Negative) Urine Bilirubin Negative (Negative) Urine Urobilinogen <2.0 (<2.0) mg/dL Ur Leukocyte Esterase Large H (Negative) Urine RBC 3 (0-5) /hpf Urine WBC 12 H (0-5) /hpf Ur Squamous Epith Cells 1 (0-4) /hpf Urine Bacteria Rare H (None) /hpf Disposition Clinical Impression: Generalized weakness, UTI (urinary tract infection) Disposition: ADMITTED IP TO THIS HOSP Condition: Good
[2024-01-24] MEDS: CEFEPIME 1 GM in SODIUM CHLORIDE 0.9% 50 ML IVPB STA (08:14)
[2024-01-24] MEDS: ENOXAPARIN 40 MG/0.4 ML SYRINGE SQ SCH (08:15)
[2024-01-24] MEDS: FAMOTIDINE 20 MG TAB PO SCH (08:15)
[2024-01-24] MEDS ORDERED: FAMOTIDINE 20 MG TAB PO SCH (09:00)
--- NOTE | 2024-01-24 13:07 | XR ---
EXAMINATION TYPE: XR lumbosacral spine min 4V DATE OF EXAM: 01/24/2024 12:44 PM COMPARISON: None. CLINICAL INDICATION: Female, 88 years old with history of leg weakness, TECHNIQUE: XR lumbosacral spine min 4V view(s) obtained. FINDINGS: There are 5 lumbar-type vertebral bodies. Pedicles are intact. Facet degenerative changes are present . No spondylolytic defects are evident. Vertebral body heights are preserved. Some mild posterior dis c space narrowing is present L3-4 possibly L5-S1. Mild degenerative disc changes at the thoracolumbar junction. Vertebral body heights are preserved. Vascular calcifications within the aorta. Structures appear somewhat osteopenic. IMPRESSION: 1. Degenerative changes no acute osseous abnormality identified. [facility], , 01/24/2024 1:05 PM
--- NOTE | 2024-01-24 13:13 | P.CNOR ---
History of Present Illness - [facility] Consult date: 01/24/24 Requesting physician: Lisa Pierre Consult reason: other (Difficulty mobilization, lower extremity weakness diffe rent than baseline) History of present illness: Patient is a pleasant 88-year-old female who is seen and examined at the bedside with her family present and primary medicine at the bedside. Patient has been experiencing newer onset right lower extremity weakness. She does have some chronic left lower extremity weakness. She felt like her legs will give out on her and she did fall to her buttocks. She is not experiencing any pain. She denies any specific lower extremity weakness or radiculopathy bilaterally but is generally weaker where she has difficulty with her mobilization. She is not experiencing any lumbar pain. Prior to my examination she has not had any imaging in regards to her lumbar spine. She denies any injury at the time of the fall. Patient is well-known to medicine. Medicine is planning to obtain lumbar x-ray and MRI imaging. Patient does use a 4 wheeled walker at baseline and will utilize a cane as needed. She does normally perform water aerobic exercises and tries to stay busy with her physical activities. She has had more difficulty over the past couple days. It was discussed with medicine, the patient, and her family the plan would be to continue with conservative treatment options with physical therapy and most likely rehab placement at the time of discharge. Patient and her family would like to avoid all surgical intervention in regards to her lumbar spine. Patient states she did have 1 episode of losing bowel on Saturday. She denies any changes with her urination. She does have some chronic difficulty and has had bladder surgery in the past. Patient's other medical diagnoses include hyperlipidemia, hypertension, respiratory disorder and thyroid disorder. She does have history of total knee arthroplasty performed bilaterally. She does not have difficulty with her knees. Past Medical History Past Medical History: GI Bleed, Hyperlipidemia, Hypertension, Osteoarthritis (OA), Respiratory Disorder, Thyroid Disorder History of Any Multi-Drug Resistant Organisms: None Reported Past Surgical History: Hysterectomy, Joint Replacement, Orthopedic Surgery Additional Past Surgical History / Comment(s): cataracts removed, BILATERAL EYE SURGERY -(MEMBRANE SURGERY) , bilateral knee replacements Past Anesthesia/Blood Transfusion Reactions: No Reported Reaction Past Psychological History: No Psychological Hx Reported Smoking Status: Never smoker Past Alcohol Use History: Occasional Past Drug Use History: None Reported - Past Family History Father Family Medical History: No Reported History Brother(s) Family Medical History: Cancer, Deep Vein Thrombosis (DVT) Additional Family Medical History / Comment(s): BLADDER CANCER Medications and Allergies Home Medications Medication Instructions Recorded Confirmed Type Aspirin 81 mg PO DAILY 02/15/14 01/24/24 History Atorvastatin [Lipitor] 10 mg PO HS 02/15/14 01/24/24 History Omeprazole 20 mg PO DAILY 02/15/14 01/24/24 History Solifenacin Succinate [Vesicare] 10 mg PO DAILY PRN 01/30/16 01/24/24 History Levothyroxine Sodium [Synthroid] 75 mcg PO DAILY 01/24/24 01/24/24 History Vitamin D3(Unknown Dose) 1 tab PO DAILY 01/24/24 01/24/24 History amLODIPine [Norvasc] 10 mg PO DAILY 01/24/24 01/24/24 History Allergies Allergy/AdvReac Type Severity Reaction Status Date / Time No Known Allergies Allergy Verified 01/24/24 09:51 Physical Examination Physical exam: Patient is awake, alert, and oriented 3 Vital signs stable Good chest excursion with deep inspiration and expiration Examination of lumbar spine reveals skin is intact with no abrasions, lacerations, or bruises; no erythema, purulence or signs of infection Dorsiflexion, plantarflexion, and extensor hallucis longus positive sustained bilaterally No specific weakness with range of motion of her lower extremities bilaterally Lower extremity strength 5/5 bilaterally Negative Lasegue's test bilaterally No signs or symptoms of DVT; no calf pain No pain with internal and external rotation of the hips bilaterally Evidence of well-healed incisions over the anterior knees Neurovascularly intact Results - Labs Labs: Abnormal Lab Results - Last 24 Hours (Table) 01/24/24 01/24/24 Range/Units 05:03 06:13 Chloride 109 H (98-107) mmol/L Glucose 100 H (74-99) mg/dL TSH 10.300 H (0.465-4.680) mIU/L Urine Nitrite Positive H (Negative) Ur Leukocyte Esterase Large H (Negative) Urine WBC 12 H (0-5) /hpf Urine Bacteria Rare H (None) /hpf H & H 01/24/24 Range/Units 05:03 Hgb 12.5 (11.4-16.0) gm/dL Hct 38.2 (34.0-46.0) % Coagulation 01/24/24 Range/Units 05:03 INR 1.1 (<1.2) Result Diagrams: 01/24/24 05:03 01/24/24 05:03 Assessment and Plan Assessment: Assessment: Acute right lower extremity weakness with ambulation Unsteady gait due to generalized lower extremity weakness Chronic left lower extremity weakness 1 episode of loss of bowel History total knee arthroplasty performed bilaterally Hyperlipidemia Hypertension History respiratory disorder Thyroid disorder (1) Hypertension Current Visit: Yes Status: Acute Code(s): I10 - ESSENTIAL (PRIMARY) HYPERT ENSION SNOMED Code(s): 30561461 (2) Hyperlipidemia Current Visit: Yes Status: Acute Code(s): E78.5 - HYPERLIPIDEMIA, UNSPECIFIED SNOMED Code(s): 73028082 (3) Respiratory disorder Current Visit: Yes Status: Acute Code(s): J98.9 - RESPIRATORY DISORDER, U NSPECIFIED SNOMED Code(s): 89124203 (4) Hypothyroidism Current Visit: Yes Status: Acute Code(s): E03.9 - HYPOTHYROIDISM, UNSPECIFIED SNOMED Code(s): 45763785 (5) Generalized weakness Current Visit: Yes Status: Acute Code(s): R53.1 - WEAKNESS SNOMED Code(s): 55004364 Plan: Plan: 1. Patient is discussed in detail with the patient, the patient's family, and Dr. Velazquez in medicine. Currently, medicine is planning to obtain further imaging with lumbar x-ray and MRI imaging for further evaluation. Will plan to review this imaging and discuss further treatment options, however, we are currently planning to work through conservative treatment and exhaust all conservative treatment options per request of the patient and her family. We did discuss patient could benefit from physical therapy. Medicine also states patient will most likely need skilled rehab at the time of discharge. I did agree we would start with conservative treatment. We may alter our plan of care depending on x-ray and MRI imaging. 2. Patient will continue be seen examined by medicine for further treatment and evaluation. Time with Patient: Greater than 30 (Including obtaining history, physical examination, reviewing of imaging, and dictation.)
--- NOTE | 2024-01-24 13:53 | P.HPIM ---
History of Present Illness H&P Date: 01/24/24 Chief Complaint: Weakness in right leg This is a pleasant 88-year-old patient, follows with Dr. Aguayo. Medical conditions include hyperlipidemia, hypertension, osteoarthritis, hypothyroid. Patient is accompanied by her daughter at the bedside. Patient lives by herself. Normally uses a four-wheel walker to get about. Outside the house she does use a cane. Chronically she has left leg weakness for over 2 years. Unsure about the exact timing but for about a week she has noticed increased weakness in the right leg. Yesterday when she was getting out of her chair unable to get up. And also fell down. Patient generally has been feeling tired. No fever no chills. Denies any back pain of any source. She does feel a numbness around the buttock area. She is chronically incontinent this had previous bladder surgery. Once this week she noticed that she has stool incontinence. But she is also has not other times. Review of systems: GEN.: Tired EYES: None HEENT: Decreased hearing NECK: None RESPIRATORY: None CARDIOVASCULAR: None GASTROINTESTINAL: None GENITOURINARY: Urine incontinence] MUSCULOSKELETAL: Joint pains e LYMPHATICS: None HEMATOLOGICAL: None PSYCHIATRY: None NEUROLOGICAL: No change in speech, vision, swallowing. Social history: Lives alone. Does use a four-wheel walker. Outside the house does use a cane. No smoking. Alcohol occasionally. Physical examination: VITAL SIGNS: 98.3, 70, 16, 147 x 67, 98% room air GENERAL: BMI 27, reclining bed awake comfortable. EYES: Pupils equal. Conjunctiva coco l. HEENT: External appearance of nose and ears normal, oral cavity grossly normal. Decreased hearing NECK: JVD not raised; masses not palpable. HEART: First and second heart sounds are normal; no edema. LUNGS: Respiratory rate normal; clear to auscultation. ABDOMEN: Soft, nontender, liver spleen not palpable, no masses palpable. PSYCH: Alert and oriented x3; mood and affect coco l. MUSCULOSKELETAL:No Clubbing/cyanosis;muscles-grossly intact. Evidence of OA in the joints. Incision zelaya on both the knees. NEUROLOGICAL: Cranial nerves grossly intact; no facial asymmetry, power and sensation grossly intact. Straight leg raising left side about 30 degrees. Right side about 50 degrees. LYMPHATICS: No lymph nodes palpable in the axilla and neck] INVESTIGATIONS, reviewed in the clinical context: January 24, 2024: White counts 4.7 hemoglobin 12.5 platelets 234 sodium 140 potassium 3.6 creatinine 0.88 TSH 10.3 Free T41.02 UA: Positive for nitrite, leukoesterase, WBC Chest x-ray film personally reviewed by me-cardiomegaly. Some interstitial prominence CT brain without contrast: Nothing acute CT angio head and neck: Nothing remarkable Assessment plan: -Patient presents with increased weakness in the right leg. Maybe about a weeks duration. Has chronic weakness of the left lower extremity. At the baseline does use a four-wheel walker and a cane. Denies any low back pain. He does com plain of area of numbness in the buttock area. Intermittently has bowel incontinence. X-ray of the lumbosacral spine. MRI of the lumbosacral spine. Without contrast. Consultation to orthopedic spine -Gait dysfunction, acute on chronic PT OT -Hypothyroid, uncontrolled Increase Synthroid to 112 mcg daily -Hyperlipidemia Lipitor 10 mg nightly -GERD Omeprazole -Chronic urinary bladder incontinence with a prior history of bladder surgery Vesicare -Essential hypertension Amlodipine -Full code -Medical power of patent prosecution attorney, daughter Nirav Care was discussed with the patient daughter at the bedside. Orthopedics consulted. Past Medical History Past Medical History: GI Bleed, Hyperlipidemia, Hypertension, Osteoarthritis (OA), Respiratory Disorder, Thyroid Disorder History of Any Multi-Drug Resistant Organisms: None Reported Past Surgical History: Hysterectomy, Joint Replacement, Orthopedic Surgery Additional Past Surgical History / Comment(s): cataracts removed, BILATERAL EYE SURGERY -(MEMBRANE SURGERY) , bilateral knee replacements Past Anesthesia/Blood Transfusion Reactions: No Reported Reaction Past Psychological History: No Psychological Hx Reported Smoking Status: Never smoker Past Alcohol Use History: Occasional Past Drug Use History: None Reported - Past Family History Father Family Medical History: No Reported History Brother(s) Family Medical History: Cancer, Deep Vein Thrombosis (DVT) Additional Family Medical History / Comment(s): BLADDER CANCER Medications and Allergies Home Medications Medication Instructions Recorded Confirmed Type Aspirin 81 mg PO DAILY 02/15/14 01/24/24 History Atorvastatin [Lipitor] 10 mg PO HS 02/15/14 01/24/24 History Omeprazole 20 mg PO DAILY 02/15/14 01/24/24 History Solifenacin Succinate [Vesicare] 10 mg PO DAILY PRN 01/30/16 01/24/24 History Levothyroxine Sodium [Synthroid] 75 mcg PO DAILY 01/24/24 01/24/24 History Vitamin D3(Unknown Dose) 1 tab PO DAILY 01/24/24 01/24/24 History amLODIPine [Norvasc] 10 mg PO DAILY 01/24/24 01/24/24 History Allergies Allergy/AdvReac Type Severity Reaction Status Date / Time No Known Allergies Allergy Verified 01/24/24 09:51 Physical Exam Vitals: Vital Signs Temp Pulse Resp BP Pulse Ox 01/24/24 08:00 70 20 167/67 98 01/24/24 06:42 71 16 167/76 98 01/24/24 03:07 98.3 F 70 16 147/67 98 Intake and Output 01/23/24 01/24/24 01/24/24 22:59 06:59 14:59 Other: Weight 73.482 kg Results CBC & Chem 7: 01/24/24 05:03 01/24/24 05:03 Labs: Abnormal Lab Results - Last 24 Hours (Table) 01/24/24 01/24/24 Range/Units 05:03 06:13 Chloride 109 H (98-107) mmol/L Glucose 100 H (74-99) mg/dL TSH 10.300 H (0.465-4.680) mIU/L Urine Nitrite Positive H (Negative) Ur Leukocyte Esterase Large H (Negative) Urine WBC 12 H (0-5) /hpf Urine Bacteria Rare H (None) /hpf
[2024-01-24] MEDS: LEVOTHYROXINE 112 MCG TAB PO SCH (14:00)
[2024-01-24] MEDS: PANTOPRAZOLE 40 MG TABLET PO SCH (14:12)
[2024-01-24] MEDS: ASPIRIN 81 MG PO SCH (14:12)
[2024-01-24] MEDS: amLODIPine 10 MG TAB PO SCH (14:12)
[2024-01-24] MEDS: LEVOTHYROXINE 75 MCG TAB PO SCH (19:10)
[2024-01-24] MEDS: ATORVASTATIN 10 MG TAB PO SCH (21:06)
[2024-01-24] MEDS: ACETAMINOPHEN TAB 325 MG TAB PO PRN (21:06)
--- NOTE | 2024-01-25 12:44 | P.PN ---
Progress Note - Text Progress Note Date: 01/25/24 Chief Complaint: Weakness in right leg This is a pleasant 88-year-old patient, follows with Dr. Aguayo. Medical conditions include hyperlipidemia, hypertension, osteoarthritis, hypothyroid. Patient is accompanied by her daughter at the bedside. Patient lives by herself. Normally uses a four-wheel walker to get about. Outside the house she does use a cane. Chronically she has left leg weakness for over 2 years. Unsure about the exact timing but for about a week she has noticed increased weakness in the right leg. Yesterday when she was getting out of her chair unable to get up. And also fell down. Patient generally has been feeling tired. No fever no chills. Denies any back pain of any source. She does feel a numbness around the buttock area. She is chronically incontinent this had previous bladder surgery. Once this week she noticed that she has stool incontinence. But she is also has not other times. January 24: Resting in bed. Comfortable. Pending MRI. Daughter at the bedside. Discussed. Also had a discussion about patient probably needs to find a place after rehab possibly assisted living or care at home for long-term. Delete that Active Medications Acetaminophen (Acetaminophen Tab 325 Mg Tab) 650 mg PO Q6HR PRN PRN Reason: Mild Pain or Fever > 100.5 Last Admin: 01/25/24 03:12 Dose: 650 mg Al Hydroxide/Mg Hydroxide (Mag Hydrox/Al Hydrox/Simeth 30 Ml Cup) 15 ml PO Q6HR PRN PRN Reason: Indigestion Amlodipine Besylate (Amlodipine 10 Mg Tab) 10 mg PO DAILY [facility] Last Admin: 01/25/24 09:48 Dose: 10 mg Aspirin (Aspirin 81 Mg) 81 mg PO DAILY [facility] Last Admin: 01/25/24 09:48 Dose: 81 mg Atorvastatin Calcium (Atorvastatin 10 Mg Tab) 10 mg PO HS [facility] Last Admin: 01/24/24 21:06 Dose: 10 mg Bisacodyl (Bisacodyl 5 Mg Tablet.) 5 mg PO DAILY PRN PRN Reason: Constipation Enoxaparin Sodium (Enoxaparin 40 Mg/0.4 Ml Syringe) 40 mg SQ DAILY [facility] Last Admin: 01/25/24 09:49 Dose: 40 mg Famotidine (Famotidine 20 Mg Tab) 20 mg PO DAILY [facility] Last Admin: 01/25/24 09:49 Dose: 20 mg Levothyroxine Sodium (Levothyroxine 112 Mcg Tab) 112 mcg PO DAILY@0630 [facility] Last Admin: 01/25/24 05:44 Dose: 112 mcg Naloxone HCl (Naloxone 0.4 Mg/Ml 1 Ml Vial) 0.2 mg IV Q2M PRN PRN Reason: Opioid Reversal Pantoprazole Sodium (Pantoprazole 40 Mg Tablet) 40 mg PO DAILY [facility] Last Admin: 01/25/24 09:48 Dose: 40 mg Tramadol HCl (Tramadol 50 Mg Tab) 50 mg PO Q6H PRN PRN Reason: Moderate Pain (Scale 4 to 6) Social history: Lives alone. Does use a four-wheel walker. Outside the house does use a cane. No smoking. Alcohol occasionally. Physical examination: VITAL SIGNS: 97.9, 663, 17, 151 x 68, 98% room air GENERAL: Sitting in bed, comfortable EYES: Pupils equal. Conjunctiva coco l. HEENT: External appearance of nose and ears normal, oral cavity grossly normal. Decreased hearing NECK: JVD not raised; masses not palpable. HEART: First and second heart sounds are normal; no edema. LUNGS: Respiratory rate normal; clear to auscultation. ABDOMEN: Soft, nontender, liver spleen not palpable, no masses palpable. PSYCH: Alert and oriented x3; mood and affect coco l. MUSCULOSKELETAL:No Clubbing/cyanosis;muscles-grossly intact. Evidence of OA in the joints. Incision zelaya on both the knees. NEUROLOGICAL: Cranial nerves grossly intact; no facial asymmetry, power and sensation grossly intact. Straight leg raising left side about 30 degrees. Right side about 50 degrees. INVESTIGATIONS, reviewed in the clinical context: X-ray lumbar sacral spine: DJD changes. January 24, 2024: White counts 4.7 hemoglobin 12.5 platelets 234 sodium 140 potassium 3.6 creatinine 0.88 TSH 10.3 Free T41.02 UA: Positive for nitrite, leukoesterase, WBC Chest x-ray film personally reviewed by me-cardiomegaly. Some interstitial prominence CT brain without contrast: Nothing acute CT angio head and neck: Nothing remarkable Assessment plan: -Patient presents with increased weakness in the right leg. Maybe about a weeks duration. Has chronic weakness of the left lower extremity. At the baseline does use a four-wheel walker and a cane. Denies any low back pain. He does complain of area of numbness in the buttock area. Intermittently has bowel incontinence. X-ray of the lumbosacral spine-DJD changes Pending. MRI of the lumbosacral spine. Without contrast. Dr. Solares orthopedic spine, following -Gait dysfunction, acute on chronic PT OT -Hypothyroid, uncontrolled Increased Synthroid to 112 mcg daily -Hyperlipidemia Lipitor 10 mg nightly -GERD Omeprazole -Chronic urinary bladder incontinence with a prior history of bladder surgery Vesicare -Essential hypertension Amlodipine -Full code -Medical power of bleacher pulp, daughter Nirav -Disposition: PT OT clinical social work aide to evaluate for rehab Discussed. Pending MRI. Past Medical History Past Medical History: GI Bleed, Hyperlipidemia, Hypertension, Osteoarthritis (OA), Respiratory Disorder, Thyroid Disorder History of Any Multi-Drug Resistant Organisms: None Reported Past Surgical History: Hysterectomy, Joint Replacement, Orthopedic Surgery Additional Past Surgical History / Comment(s): cataracts removed, BILATERAL EYE SURGERY -(MEMBRANE SURGERY) , bilateral knee replacements Past Anesthesia/Blood Transfusion Reactions: No Reported Reaction Past Psychological History: No Psychological Hx Reported Smoking Status: Never smoker Past Alcohol Use History: Occasional Past Drug Use History: None Reported
--- NOTE | 2024-01-26 11:43 | P.PN ---
Progress Note - Text Progress Note Date: 01/26/24 Patient is seen and examined at bedside. She says her pain is doing better. She is feeling more comfortable with her mobility. She denies any new pains or neurologic change. She is afebrile stable vital signs At her lower extremity she has sustained dorsiflexion plantarflexion EHL intact. She is able lift her legs up off the bed independently. Her thighs and calves soft nontender. Her back is nontender to palpation. Abdomen soft nontender Assessment and plan Lumbar degenerative disease and spondylosis Multiple falls at home with general increasing difficulty with activities The patient is very independent in general. She does regular walking in the mall and water aerobics. She has been having more frequent difficulty with her mobility and has had a couple of falls. She is not having an acute neurologic deficit and most of her difficulty comes from trying to take care of her exterior of her home. She is not having significant pain at her back of her lower extremities at this point. Her daughter is available at bedside and we discussed the patient's situation at length. We do not have any surgical plans for the patient. If she is having continued or worsening symptoms I think that she could be a candidate for interventional pain management with epidural steroid injections. She has an MRI ordered as per medicine and I think that is appropriate for continued treatment. From a orthopedic spine standpoint it would be okay for her to be discharged when she is safe with her mobility and ambulation. We do not have any plans for surgical intervention during this admission.
--- NOTE | 2024-01-26 20:51 | P.PN ---
Progress Note - Text Progress Note Date: 01/26/24 Chief Complaint: Weakness in right leg This is a pleasant 88-year-old patient, follows with Dr. Aguayo. Medical conditions include hyperlipidemia, hypertension, osteoarthritis, hypothyroid. Patient is accompanied by her daughter at the bedside. Patient lives by herself. Normally uses a four-wheel walker to get about. Outside the house she does use a cane. Chronically she has left leg weakness for over 2 years. Unsure about the exact timing but for about a week she has noticed increased weakness in the right leg. Yesterday when she was getting out of her chair unable to get up. And also fell down. Patient generally has been feeling tired. No fever no chills. Denies any back pain of any source. She does feel a numbness around the buttock area. She is chronically incontinent this had previous bladder surgery. Once this week she noticed that she has stool incontinence. But she is also has not other times. January 24: Resting in bed. Comfortable. Pending MRI. Daughter at the bedside. Discussed. Also had a discussion about patient probably needs to find a place after rehab possibly assisted living or care at home for long-term. January 25: Comfortable. In bed. Daughter at the bedside. Pending MRI. No new issues. PT OT will evaluate and evaluate for rehab. Patient no urinary symptoms. Asymptomatic bacteriuria Active Medications Acetaminophen (Acetaminophen Tab 325 Mg Tab) 650 mg PO Q6HR PRN PRN Reason: Mild Pain or Fever > 100.5 Last Admin: 01/25/24 03:12 Dose: 650 mg Al Hydroxide/Mg Hydroxide (Mag Hydrox/Al Hydrox/Simeth 30 Ml Cup) 15 ml PO Q6HR PRN PRN Reason: Indigestion Amlodipine Besylate (Amlodipine 10 Mg Tab) 10 mg PO DAILY [facility] Last Admin: 01/26/24 08:39 Dose: 10 mg Aspirin (Aspirin 81 Mg) 81 mg PO DAILY [facility] Last Admin: 01/26/24 08:39 Dose: 81 mg Atorvastatin Calcium (Atorvastatin 10 Mg Tab) 10 mg PO HS [facility] Last Admin: 01/26/24 20:00 Dose: 10 mg Bisacodyl (Bisacodyl 5 Mg Tablet.) 5 mg PO DAILY PRN PRN Reason: Constipation Enoxaparin Sodium (Enoxaparin 40 Mg/0.4 Ml Syringe) 40 mg SQ DAILY [facility] Last Admin: 01/26/24 08:39 Dose: 40 mg Famotidine (Famotidine 20 Mg Tab) 20 mg PO DAILY [facility] Last Admin: 01/26/24 08:39 Dose: 20 mg Levothyroxine Sodium (Levothyroxine 112 Mcg Tab) 112 mcg PO DAILY@0630 [facility] Last Admin: 01/26/24 05:50 Dose: 112 mcg Naloxone HCl (Naloxone 0.4 Mg/Ml 1 Ml Vial) 0.2 mg IV Q2M PRN PRN Reason: Opioid Reversal Pantoprazole Sodium (Pantoprazole 40 Mg Tablet) 40 mg PO DAILY [facility] Last Admin: 01/26/24 08:39 Dose: 40 mg Tramadol HCl (Tramadol 50 Mg Tab) 50 mg PO Q6H PRN PRN Reason: Moderate Pain (Scale 4 to 6) Social history: Lives alone. Does use a four-wheel walker. Outside the house does use a cane. No smoking. Alcohol occasionally. Physical examination: VITAL SIGNS: 98.1, 71, 18, 124 x 72, 95% room air GENERAL: Comfortable in bed EYES: Pupils equal. Conjunctiva coco l. HEENT: External appearance of nose and ears normal, oral cavity grossly normal. Decreased hearing NECK: JVD not raised; masses not palpable. HEART: First and second heart sounds are normal; no edema. LUNGS: Respiratory rate normal; clear to auscultation. ABDOMEN: Soft, nontender, liver spleen not palpable, no masses palpable. PSYCH: Alert and oriented x3; mood and affect coco l. MUSCULOSKELETAL:No Clubbing/cyanosis;muscles-grossly intact. Evidence of OA in the joints. Incision zelaya on both the knees. NEUROLOGICAL: Cranial nerves grossly intact; no facial asymmetry, power and sensation grossly intact. Straight leg raising left side about 30 degrees. Right side about 50 degrees. INVESTIGATIONS, reviewed in the clinical context: X-ray lumbar sacral spine: DJD changes. January 24, 2024: White counts 4.7 hemoglobin 12.5 platelets 234 sodium 140 potassium 3.6 creatinine 0.88 TSH 10.3 Free T41.02 UA: Positive for nitrite, leukoesterase, WBC Chest x-ray film personally reviewed by me-cardiomegaly. Some interstitial prominence CT brain without contrast: Nothing acute CT angio head and neck: Nothing remarkable Assessment plan: -Patient presents with increased weakness in the right leg. Maybe about a weeks duration. Has chronic weakness of the left lower extremity. At the baseline does use a four-wheel walker and a cane. Denies any low back pain. He does complain of area of numbness in the buttock area. Intermittently has bowel incontinence. X-ray of the lumbosacral spine-DJD changes Pending. MRI of the lumbosacral spine. Without contrast. Dr. Solares orthopedic spine, following -Gait dysfunction, acute on chronic PT OT -Asymptomatic bacteriuria -Hypothyroid, uncontrolled Increased Synthroid to 112 mcg daily -Hyperlipidemia Lipitor 10 mg nightly -GERD Omeprazole -Chronic urinary bladder incontinence with a prior history of bladder surgery Vesicare -Essential hypertension Amlodipine -Full code -Medical power of deputy commonwealth's attorney, daughter Nirav -Disposition: PT OT social insurance adviser to evaluate for rehab Discussed with patient and daughter. Pending MRI. Past Medical History Past Medical History: GI Bleed, Hyperlipidemia, Hypertension, Osteoarthritis (OA), Respiratory Disorder, Thyroid Disorder History of Any Multi-Drug Resistant Organisms: None Reported Past Surgical History: Hysterectomy, Joint Replacement, Orthopedic Surgery Additional Past Surgical History / Comment(s): cataracts removed, BILATERAL EYE SURGERY -(MEMBRANE SURGERY) , bilateral knee replacements Past Anesthesia/Blood Transfusion Reactions: No Reported Reaction Past Psychological History: No Psychological Hx Reported Smoking Status: Never smoker Past Alcohol Use History: Occasional Past Drug Use History: None Reported
--- NOTE | 2024-01-27 13:48 | MR ---
EXAMINATION TYPE: MR lspine/sacrum wo con DATE OF EXAM: 01/27/2024 10:21 AM COMPARISON: 01/24/2024.. CLINICAL INDICATION: Female, 88 years old with history of chr LLE weakness, acute RLE weakness; PHH, Chronic LLE and acute RLE weakness. TECHNIQUE: Multi planar, multi sequence imaging was performed utilizing: T1-weighted, T2-weighted, a nd turbo inversion recovery imaging of the lumbar spine. IV Contrast: mL (None, if empty) Multi planar multi sequence imaging of the sacrum. FINDINGS: Alignment: The lumbar vertebral bodies have preserved heights with grade 1 anterolisthesis of L4 on L 5. Cord: The conus medullaris and the distal spinal cord appear unremarkable with regards to their signa l intensity and morphology. Bones/Discs: Mild degeneration changes throughout the spine with osteophyte formation and facet joint arthropathy. Intervertebral disc signal is maintained. No abnormal inversion recovery signal to sugg est bony edema. T12-L1: No evidence of significant spinal canal stenosis or neural foraminal stenosis. L1-L2: Disc bulge and facet joint arthropathy without significant spinal canal stenosis and mild bila teral neural foraminal stenosis. L2-L3: No evidence of significant spinal canal stenosis. Facet joint arthropathy mild bilateral neura l foraminal stenosis. L3-L4: No evidence of significant spinal canal stenosis. Facet joint arthropathy mild bilateral neura l foraminal stenosis. L4-L5: Disc uncovering from grade 1 anterolisthesis and facet joint arthropathy with mild spinal johann l stenosis and mild bilateral neural foraminal stenosis. L5-S1: Central disc protrusion without significant spinal canal stenosis. Facet joint arthropathy wit h mild bilateral neural foraminal stenosis. No significant spinal canal or neural foraminal stenosis in the remainder of the visualized levels. Other findings: High T2 signal renal cysts bilaterally. Scattered colonic diverticula. Additional imaging of the sacrum demonstrates no evidence for significant neural foraminal stenosis o r stenosis within the sacral canal. There is appropriate signal of the sacrum. No evidence of fractur e. No evidence for abnormal bony edema. IMPRESSION: 1. No definitive evidence of disc herniation or significant spinal canal stenosis. 2. [id number] disc degeneration with associated osteoarthritic changes. No evidence for signif icant neural foraminal stenosis in the lumbar spine. 3. No evidence for sacral canal or neural foramen stenosis. [facility], , 01/27/2024 1:46 PM
--- NOTE | 2024-01-27 19:14 | P.PN ---
Progress Note - Text Progress Note Date: 01/27/24 Chief Complaint: Weakness in right leg This is a pleasant 88-year-old patient, follows with Dr. Aguayo. Medical conditions include hyperlipidemia, hypertension, osteoarthritis, hypothyroid. Patient is accompanied by her daughter at the bedside. Patient lives by herself. Normally uses a four-wheel walker to get about. Outside the house she does use a cane. Chronically she has left leg weakness for over 2 years. Unsure about the exact timing but for about a week she has noticed increased weakness in the right leg. Yesterday when she was getting out of her chair unable to get up. And also fell down. Patient generally has been feeling tired. No fever no chills. Denies any back pain of any source. She does feel a numbness around the buttock area. She is chronically incontinent this had previous bladder surgery. Once this week she noticed that she has stool incontinence. But she is also has not other times. January 24: Resting in bed. Comfortable. Pending MRI. Daughter at the bedside. Discussed. Also had a discussion about patient probably needs to find a place after rehab possibly assisted living or care at home for long-term. January 25: Comfortable. In bed. Daughter at the bedside. Pending MRI. No new issues. PT OT will evaluate and evaluate for rehab. Patient no urinary symptoms. Asymptomatic bacteriuria January 26: Saw the patient this morning. Comfortable. MRI was done. Pending input from Dr. Solares. Spoke to the daughter. Patient did walk 300 feet with physical therapy. Declined home care with the social work supervisor. Daughter will speak to Dr. Solares hopefully can be discharged tomorrow. Patient again denies any back pain. Active Medications Acetaminophen (Acetaminophen Tab 325 Mg Tab) 650 mg PO Q6HR PRN PRN Reason: Mild Pain or Fever > 100.5 Last Admin: 01/25/24 03:12 Dose: 650 mg Al Hydroxide/Mg Hydroxide (Mag Hydrox/Al Hydrox/Simeth 30 Ml Cup) 15 ml PO Q6HR PRN PRN Reason: Indigestion Amlodipine Besylate (Amlodipine 10 Mg Tab) 10 mg PO DAILY [facility] Last Admin: 01/27/24 08:34 Dose: 10 mg Aspirin (Aspirin 81 Mg) 81 mg PO DAILY [facility] Last Admin: 01/27/24 08:34 Dose: 81 mg Atorvastatin Calcium (Atorvastatin 10 Mg Tab) 10 mg PO HS [facility] Last Admin: 01/26/24 20:00 Dose: 10 mg Bisacodyl (Bisacodyl 5 Mg Tablet.Dr) 5 mg PO DAILY PRN PRN Reason: Constipation Enoxaparin Sodium (Enoxaparin 40 Mg/0.4 Ml Syringe) 40 mg SQ DAILY [facility] Last Admin: 01/27/24 08:34 Dose: 40 mg Famotidine (Famotidine 20 Mg Tab) 20 mg PO DAILY [facility] Last Admin: 01/27/24 08:34 Dose: 20 mg Levothyroxine Sodium (Levothyroxine 112 Mcg Tab) 112 mcg PO DAILY@0630 [facility] Last Admin: 01/27/24 06:35 Dose: 112 mcg Naloxone HCl (Naloxone 0.4 Mg/Ml 1 Ml Vial) 0.2 mg IV Q2M PRN PRN Reason: Opioid Reversal Pantoprazole Sodium (Pantoprazole 40 Mg Tablet) 40 mg PO DAILY [facility] Last Admin: 01/27/24 08:34 Dose: 40 mg Tramadol HCl (Tramadol 50 Mg Tab) 50 mg PO Q6H PRN PRN Reason: Moderate Pain (Scale 4 to 6) Social history: Lives alone. Does use a four-wheel walker. Outside the house does use a cane. No smoking. Alcohol occasionally. Physical examination: VITAL SIGNS: 98.1, 80, 17, 103 x 65, 95% room air GENERAL: Comfortable in bed EYES: Pupils equal. Conjunctiva coco l. HEENT: External appearance of nose and ears normal, oral cavity grossly normal. Decreased hearing NECK: JVD not raised; masses not palpable. HEART: First and second heart sounds are normal; no edema. LUNGS: Respiratory rate normal; clear to auscultation. ABDOMEN: Soft, nontender, liver spleen not palpable, no masses palpable. PSYCH: Alert and oriented x3; mood and affect coco l. MUSCULOSKELETAL:No Clubbing/cyanosis;muscles-grossly intact. Evidence of OA in the joints. Incision zelaya on both the knees. NEUROLOGICAL: Cranial nerves grossly intact; no facial asymmetry, power and sensation grossly intact. Straight leg raising left side about 30 degrees. Right side about 50 degrees.. Walked 300 feet with physical therapy today INVESTIGATIONS, reviewed in the clinical context: Lumbar spine MRI no definite evidence of disc herniation or central spinal stenosis. Mild to moderate disc degeneration with associated osteoarthritic changes. No evidence of sacral canal or neural foraminal stenosis. X-ray lumbar sacral spine: DJD changes. January 24, 2024: White counts 4.7 hemoglobin 12.5 platelets 234 sodium 140 potassium 3.6 creatinine 0.88 TSH 10.3 Free T41.02 UA: Positive for nitrite, leukoesterase, WBC Chest x-ray film personally reviewed by me-cardiomegaly. Some interstitial prominence CT brain without contrast: Nothing acute CT angio head and neck: Nothing remarkable Assessment plan: -Patient presents with increased weakness in the right leg. Maybe about a weeks duration. Has chronic weakness of the left lower extremity. At the baseline does use a four-wheel walker and a cane. Denies any low back pain. He does complain of area of numbness in the buttock area. Intermittently has bowel incontinence. X-ray of the lumbosacral spine-DJD changes MRI of the lumbosacral spine.-no definite evidence of disc herniation or central spinal stenosis. Mild to moderate disc degeneration with associated osteoarthritic changes. No evidence of sacral canal or neural foraminal stenosis. Dr. Solares orthopedic spine, to discuss with the daughter MRI findings. -Gait dysfunction, acute on chronic PT OT. Walk 300 feet with a walker -Asymptomatic bacteriuria -Hypothyroid, uncontrolled Increased Synthroid to 112 mcg daily -Hyperlipidemia Lipitor 10 mg nightly -GERD Omeprazole -Chronic urinary bladder incontinence with a prior history of bladder surgery Vesicare -Essential hypertension Amlodipine -Full code -Medical power of employee benefits attorney, daughter Nirav -Disposition: PT OT social work supervisor to evaluate for rehab Discussed with patient and the daughter with the results of the MRI. Await input from Dr. Solares. Plan for discharge tomorrow. Past Medical History Past Medical History: GI Bleed, Hyperlipidemia, Hypertension, Osteoarthritis (OA), Respiratory Disorder, Thyroid Disorder History of Any Multi-Drug Resistant Organisms: None Reported Past Surgical History: Hysterectomy, Joint Replacement, Orthopedic Surgery Additional Past Surgical History / Comment(s): cataracts removed, BILATERAL EYE SURGERY -(MEMBRANE SURGERY) , bilateral knee replacements Past Anesthesia/Blood Transfusion Reactions: No Reported Reaction Past Psychological History: No Psychological Hx Reported Smoking Status: Never smoker Past Alcohol Use History: Occasional Past Drug Use History: None Reported
[2024-01-28 07:43] VITALS: BP 145/68; PULSE 67; RESP 16; TEMP 97.9
--- NOTE | 2024-01-28 12:26 | P.PN ---
Progress Note - Text Progress Note Date: 01/28/24 Patient is seen and examined at bedside. She is accompanied by her daughter. She has no new complaints. She was able to walk with physical therapy 300 feet. She gets up with assistance to her bathroom. She denies any new pain or complaints. She is afebrile with stable vital signs Lower extremities have sustained dorsiflexion plantarflexion EHL intact. She is able lift her legs up off the bed but has some global weakness. Her back is nontender. MRI lumbar spine is reviewed. There is no severe stenosis or significant neural compromise. There is some foraminal encroachment with diffuse disc bulging which is mild to moderate. Assessment and plan Difficulty ambulating Global weakness and deconditioning No evidence of specific neurologic compromise from the lumbar spine No severe stenosis at the lumbar spine to account for her issues I think it is okay from a spine standpoint for the patient to mobilize as tolerated. I do not have any plans for any surgical intervention and I do not think that interventional pain management would offer any significant benefit for her back of her lower extremities. I think she should continue with mobilization and ambulation and physical therapy in order to create a safe environment for her. I had a long discussion with her in this regard and I think her safety is paramount. She lives at home by herself and takes care of the house and even the exterior the house and I warned her that she is at risk by doing this and it is difficult to determine if she understands but she says that she does and will work with her family in this regard to consider appropriate safe living accommodations for her. Currently she is scheduled to go home with home health. From a spine standpoint is okay for her to be discharged and to follow-up on a as needed basis.
--- NOTE | 2024-01-28 16:15 | P.DS ---
Providers Date of admission: 01/24/24 06:46 Expected date of discharge: 01/28/24 Attending physician: Anthony Velazquez Consults: 01/24/24 06:46 Consult Physician Routine Consulting Provider: Leeann Solares Consult Reason/Comments: LLE weakness, concern for radiculopathy Do you want consulting provider notified?: Yes, Notify in am Primary care physician: [facility] Course: Chief Complaint: Weakness in right leg This is a pleasant 88-year-old patient, follows with Dr. Aguayo. Medical conditions include hyperlipidemia, hypertension, osteoarthritis, hypothyroid. Patient is accompanied by her daughter at the bedside. Patient lives by herself. Normally uses a four-wheel walker to get about. Outside the house she does use a cane. Chronically she has left leg weakness for over 2 years. Unsure about the exact timing but for about a week she has noticed increased weakness in the right leg. Yesterday when she was getting out of her chair unable to get up. And also fell down. Patient generally has been feeling tired. No fever no chills. Denies any back pain of any source. She does feel a numbness around the buttock area. She is chronically incontinent this had previous bladder surgery. Once this week she noticed that she has stool incontinence. But she is also has not other times. January 24: Resting in bed. Comfortable. Pending MRI. Daughter at the bedside. Discussed. Also had a discussion about patient probably needs to find a place after rehab possibly assisted living or care at home for long-term. January 25: Comfortable. In bed. Daughter at the bedside. Pending MRI. No new issues. PT OT will evaluate and evaluate for rehab. Patient no urinary symptoms. Asymptomatic bacteriuria January 26: Saw the patient this morning. Comfortable. MRI was done. Pending input from Dr. Solares. Spoke to the daughter. Patient did walk 300 feet with physical therapy. Declined home care with the social director. Daughter will speak to Dr. Solares hopefully can be discharged tomorrow. Patient again denies any back pain. January 27: Patient comfortable. Seen by Dr. Solares from orthopedic spine. Not for any further intervention. Patient get home health. Discussed with daughter Nirav at the bedside. Questions answered. Patient did well with physical therapy. Social history: Lives alone. Does use a four-wheel walker. Outside the house does use a cane. No smoking. Alcohol occasionally. Physical examination: VITAL SIGNS: 97.9, 67, 16, 145 x 60, 96% room air GENERAL: Comfortable in bed EYES: Pupils equal. Conjunctiva coco l. HEENT: External appearance of nose and ears normal, oral cavity grossly normal. Decreased hearing NECK: JVD not raised; masses not palpable. HEART: First and second heart sounds are normal; no edema. LUNGS: Respiratory rate normal; clear to auscultation. ABDOMEN: Soft, nontender, liver spleen not palpable, no masses palpable. PSYCH: Alert and oriented x3; mood and affect coco l. MUSCULOSKELETAL:No Clubbing/cyanosis;muscles-grossly intact. Evidence of OA in the joints. Incision zelaya on both the knees. NEUROLOGICAL: Cranial nerves grossly intact; no facial asymmetry, power and sensation grossly intact. Straight leg raising left side about 30 degrees. Right side about 50 degrees.. Walked 300 feet with physical therapy INVESTIGATIONS, reviewed in the clinical context: Lumbar spine MRI no definite evidence of disc herniation or central spinal stenosis. Mild to moderate disc degeneration with associated osteoarthritic changes. No evidence of sacral canal or neural foraminal stenosis. X-ray lumbar sacral spine: DJD changes. January 24, 2024: White counts 4.7 hemoglobin 12.5 platelets 234 sodium 140 potassium 3.6 creatinine 0.88 TSH 10.3 Free T41.02 UA: Positive for nitrite, leukoesterase, WBC Chest x-ray film personally reviewed by me-cardiomegaly. Some interstitial prominence CT brain without contrast: Nothing acute CT angio head and neck: Nothing remarkable Assessment plan: -Patient presents with increased weakness in the right leg. Maybe about a weeks duration. Has chronic weakness of the left lower extremity. At the baseline does use a four-wheel walker and a cane. Denies any low back pain. He does complain of area of numbness in the buttock area. Intermittently has bowel incontinence. X-ray of the lumbosacral spine-DJD changes MRI of the lumbosacral spine.-no definite evidence of disc herniation or central spinal stenosis. Mild to moderate disc degeneration with associated osteoarthritic changes. No evidence of sacral canal or neural foraminal stenosis. Dr. Solares orthopedic spine,-no further intervention. Okay for DC -Gait dysfunction, acute on chronic PT OT. Walk 300 feet with a walker -Asymptomatic bacteriuria -Hypothyroid, uncontrolled Increased Synthroid to 112 mcg daily -Hyperlipidemia Lipitor 10 mg nightly -GERD Omeprazole -Chronic urinary bladder incontinence with a prior history of bladder surgery Vesicare -Essential hypertension Amlodipine -Full code -Medical power of rate analyst, daughter Nirav -Disposition: PT OT social director to evaluate for rehab Disposition: Home Past Medical History Past Medical History: GI Bleed, Hyperlipidemia, Hypertension, Osteoarthritis (OA), Respiratory Disorder, Thyroid Disorder History of Any Multi-Drug Resistant Organisms: None Reported Past Surgical History: Hysterectomy, Joint Replacement, Orthopedic Surgery Additional Past Surgical History / Comment(s): cataracts removed, BILATERAL EYE SURGERY -(MEMBRANE SURGERY) , bilateral knee replacements Past Anesthesia/Blood Transfusion Reactions: No Reported Reaction Past Psychological History: No Psychological Hx Reported Smoking Status: Never smoker Past Alcohol Use History: Occasional Past Drug Use History: None Reported Plan - Discharge Summary New Discharge Prescriptions: New Levothyroxine Sodium [Synthroid] 112 mcg PO DAILY@0630 #30 tab Continue Omeprazole 20 mg PO DAILY Atorvastatin [Lipitor] 10 mg PO HS Aspirin 81 mg PO DAILY Solifenacin Succinate [Vesicare] 10 mg PO DAILY PRN PRN Reason: overactive bladder amLODIPine [Norvasc] 10 mg PO DAILY Vitamin D3(Unknown Dose) 1 tab PO DAILY Discontinued Levothyroxine Sodium [Synthroid] 75 mcg PO DAILY Discharge Medication List Aspirin 81 mg PO DAILY 02/15/14 [History] Atorvastatin [Lipitor] 10 mg PO HS 02/15/14 [History] Omeprazole 20 mg PO DAILY 02/15/14 [History] Solifenacin Succinate [Vesicare] 10 mg PO DAILY PRN 01/30/16 [History] Vitamin D3(Unknown Dose) 1 tab PO DAILY 01/24/24 [History] amLODIPine [Norvasc] 10 mg PO DAILY 01/24/24 [History] Levothyroxine Sodium [Synthroid] 112 mcg PO DAILY@0630 #30 tab 01/28/24 [Rx] Follow up Appointment(s)/Referral(s): [facility], [NON-STAFF] - As Needed J Luis Aguayo DO [Primary Care Provider] - 1-2 days Leeann Solares DO [Doctor of Osteopathic Medicine] - 1 Week Patient Instructions/Handouts: Weakness (DC)
== END 2024-01-28 14:08 ==
LOC: EC 03:03 → 6NMEDSUR 06:46
PROVIDERS: ADMIT Hospitalist; ATTEND Hospitalist
DX: R53.1 Weakness (principal); R29.6 Repeated falls; M47.9 Spondylosis, unspecified; R20.0 Anesthesia of skin; N39.0 Urinary tract infection, site not specified; E03.9 Hypothyroidism, unspecified; E78.5 Hyperlipidemia, unspecified; K21.9 Gastro-esophageal reflux disease without esophagitis; R32 Unspecified urinary incontinence; I10 Essential (primary) hypertension; R53.83 Other fatigue; R15.9 Full incontinence of feces; Z79.82 Long term (current) use of aspirin; Z79.899 Other long term (current) drug therapy; Z79.890 Hormone replacement therapy; Z96.653 Presence of artificial knee joint, bilateral
CPT/HCPCS: 96372 ×5; 96365; 96366; 99285; 36415; 94760 ×3; 93005; 97161; 97530; 97165; 84439; 83880; 80053; 83735; 84443; 84484; 85025; 85610; 85730; 81001; 87086; 87077; 87186; 72110; 71045; 70496; 70450; 70498; 72148; 72195; G0378 ×5; J0692; J1650 ×5; Q9967

== ENCOUNTER → 2024-06-30 | Outpatient (CLI) | payer MEDICARE ==
--- NOTE | 2024-06-30 13:27 | US ---
EXAMINATION TYPE: US venous doppler duplex LE BI DATE OF EXAM: 06/30/2024 1:15 PM COMPARISON: NONE CLINICAL INDICATION: Female, 88 years old with history of R60.0 LOCALIZED EDEMA; Edema, Pain TECHNIQUE: The lower extremity deep venous system is examined utilizing real time linear array sonog mary with graded compression, color doppler sonography, and spectral doppler. SIDE PERFORMED: Bilateral FINDINGS: VESSELS IMAGED: Common Femoral Vein Deep Femoral Vein Greater Saphenous Vein * Femoral Vein Popliteal Vein Small Saphenous Vein * Proximal Calf Veins (* superficial vessels) Right Leg: Negative for DVT, Color Doppler imaging shows patency of the vessels. Spectral waveforms are within normal limits. Left Leg: Negative for DVT, Color Doppler imaging shows patency of the vessels. Spectral waveforms a re within normal limits. IMPRESSION: No ultrasound evidence for deep venous thrombosis. [facility], , 06/30/2024 1:25 PM
== END | disposition home or self-care (01) ==
LOC: RADUSWWP 12:47
PROVIDERS: ATTEND Family Medicine
DX: R60.0 Localized edema (principal)
CPT/HCPCS: 93970

== ENCOUNTER 2024-07-08 14:25 | Emergency (ER) | payer MEDICARE ==
[2024-07-08 14:35] VITALS: RESP 18; TEMP 97.9
--- NOTE | 2024-07-08 15:05 | ED ---
Fall HPI - General Chief Complaint: Fall Stated Complaint: Fall Time Seen by Provider: 07/08/24 14:31 Source: patient, EMS, RN notes reviewed Mode of arrival: EMS Limitations: physical limitation - History of Present Illness Initial Comments: 88-year-old female presents emergency department presents to the emergency department with chief complaint of a fall. Patient states she was taking her trash pain and when the wheel caught causing her to fall. She fell onto the right side she denies any head injury no loss conscious. Patient states that pain to her right shoulder right elbow and right hip she states even if she she did not fall today she cannot get up from the ground on a normal day. She denies any increasing weakness no focal weakness. Denies any blood thinners. - Related Data Home Medications Medication Instructions Recorded Confirmed Aspirin 81 mg PO DAILY 02/15/14 01/24/24 Atorvastatin [Lipitor] 10 mg PO HS 02/15/14 01/24/24 Omeprazole 20 mg PO DAILY 02/15/14 01/24/24 Solifenacin Succinate [Vesicare] 10 mg PO DAILY PRN 01/30/16 01/24/24 Vitamin D3(Unknown Dose) 1 tab PO DAILY 01/24/24 01/24/24 amLODIPine [Norvasc] 10 mg PO DAILY 01/24/24 01/24/24 Previous Rx's Medication Instructions Recorded Levothyroxine Sodium [Synthroid] 112 mcg PO DAILY@0630 #30 tab 01/28/24 Allergies Allergy/AdvReac Type Severity Reaction Status Date / Time No Known Allergies Allergy Verified 07/08/24 14:35 Review of Systems ROS Statement: Those systems with pertinent positive or pertinent negative responses have been documented in the HPI. ROS Other: All systems not noted in ROS Statement are negative. Past Medical History Past Medical History: GI Bleed, Hyperlipidemia, Hypertension, Osteoarthritis (OA), Respiratory Disorder, Thyroid Disorder History of Any Multi-Drug Resistant Organisms: None Reported Past Surgical History: Hysterectomy, Joint Replacement, Orthopedic Surgery Additional Past Surgical History / Comment(s): cataracts removed, BILATERAL EYE SURGERY -(MEMBRANE SURGERY) , bilateral knee replacements Past Anesthesia/Blood Transfusion Reactions: No Reported Reaction Past Psychological History: No Psychological Hx Reported Smoking Status: Never smoker Past Alcohol Use History: Occasional Past Drug Use History: None Reported - Past Family History Father Family Medical History: No Reported History Brother(s) Family Medical History: Cancer, Deep Vein Thrombosis (DVT) Additional Family Medical History / Comment(s): BLADDER CANCER General Exam Limitations: no limitations General appearance: alert, in no apparent distress Head exam: Present: atraumatic, normocephalic, normal inspection Eye exam: Present: normal appearance, PERRL, EOMI. Absent: scleral icterus, conjunctival injection, periorbital swelling ENT exam: Present: normal exam, normal oropharynx, mucous membranes moist Neck exam: Present: normal inspection, full ROM. Absent: tenderness, meningismus, lymphadenopathy Respiratory exam: Present: normal lung sounds bilaterally. Absent: respiratory distress, wheezes, rales, rhonchi, stridor Cardiovascular Exam: Present: regular rate, normal rhythm, normal heart sounds. Absent: systolic murmur, diastolic murmur, rubs, gallop, clicks GI/Abdominal exam: Present: soft, normal bowel sounds. Absent: distended, tenderness, guarding, rebound, rigid Extremities exam: Present: other (Right shoulder there is limited range of motion, diffuse tenderness neurovascular intact, decreased range of motion right elbow with tenderness no obvious deformity right hip no shortening or rotation mild tenderness neurovascular intact lower extremity) Back exam: Present: full ROM. Absent: tenderness Neurological exam: Present: alert, oriented X3, CN II-XII intact, reflexes normal. Absent: motor sensory deficit Course Vital Signs 07/08/24 14:28 Temperature 97.9 F Pulse Rate 70 Respiratory 18 Rate Blood Pressure 148/66 O2 Sat by Pulse 96 Oximetry Medical Decision Making - Medical Decision Making Was pt. sent in by a medical professional or institution (, PA, [employer]ACH[employer] ACC[employer]IES ATTACHER, urgent care, hospital, or long term...) When possible be specific @ -No Did you speak to anyone other than the patient for history (EMS, parent, family, police, friend...)? What history was obtained from this source @ -No Did you review nursing and triage notes (agree or disagree)? Why? @ -I reviewed and agree with nursing and triage notes Were old charts reviewed (outside hosp., previous admission, EMS record, old EKG, old radiological studies, urgent care reports/EKG's, long term records)? Report findings @ -No old charts were reviewed Differential Diagnosis (chest pain, altered mental status, abdominal pain women, abdominal pain men, vaginal bleeding, weakness, fever, dyspnea, syncope, headache, dizziness, GI bleed, back pain, seizure, CVA, palpatations, mental health, musculoskeletal)? @ -Fall, hip fracture hip contusion shoulder fracture shoulder dislocation arm fracture EKG interpreted by me (3pts min.). @None X-rays interpreted by me (1pt min.). @ -X-ray right hip with AP pelvis no acute fracture osteoarthritis noted X-ray right shoulder no acute fracture or dislocation chronic rotator cuff changes. X-ray right elbow no acute fracture CT interpreted by me (1pt min.). @ -None done U/S interpreted by me (1pt. min.). @ -None done What testing was considered but not performed or refused? (CT, X-rays, U/S, labs)? Why? @ -None What meds were considered but not given or refused? Why? @ -None Did you discuss the management of the patient with other professionals (professionals i.e. , PA, [employer] ATT[employer]ER, lab, RT, psych nurse, social media content specialist, wallpaper printer, teacher, forest fire management officer, disease case manager rn)? Give summary @ -No Was smoking cessation discussed for >3mins.? @ -No Was critical care preformed (if so, how long)? @ -No Were there social determinants of health that impacted care today? How? (Homelessness, low income, unemployed, alcoholism, drug addiction, transportation, low edu. Level, literacy, decrease access to med. care, usp, rehab)? @ -No Was there de-escalation of care discussed even if they declined (Discuss DNR or withdrawal of care, Hospice)? DNR status @ -No What co-morbidities impacted this encounter? (DM, HTN, Smoking, COPD, CAD, Cancer, CVA, ARF, Chemo, Hep., AIDS, mental health diagnosis, sleep apnea, morbid obesity)? @ -None Was patient admitted / discharged? Hospital course, mention meds given and route, prescriptions, significant lab abnormalities, going to OR and other pertinent info. @ -Discharge patient presented for fall x-rays are negative patient discharged in stable condition return parameters maría elena. Undiagnosed new problem with uncertain prognosis? @ -No Drug Therapy requiring intensive monitoring for toxicity (Heparin, Nitro, Insulin, Cardizem)? @ -No Were any procedures done? @ -No Diagnosis/symptom? @ -Fall, right shoulder contusion right hip contusion right elbow contusion Acute, or Chronic, or Acute on Chronic? @ -Acute Uncomplicated (without systemic symptoms) or Complicated (systemic symptoms)? @ -Uncomplicated Side effects of treatment? @ -No Exacerbation, Progression, or Severe Exacerbation? @ -No Poses a threat to life or bodily function? How? (Chest pain, [place], [place], pneumonia, PE, COPD, DKA, ARF, appy, cholecystitis, CVA, Diverticulitis, Homicidal, Suicidal, threat to staff... and all critical care pts) @ -No Disposition Clinical Impression: Fall, Contusion of hip, right, Contusion of right arm Disposition: HOME SELF-CARE Condition: Stable Instructions (If sedation given, give patient instructions): Hip Contusion (ED) Additional Instructions: Please return to the Emergency Department if symptoms worsen or any other concerns. Is patient prescribed a controlled substance at d/c from ED?: No Referrals: J Luis Aguayo DO [Primary Care Provider] - 1-2 days Time of Disposition: 15:42
--- NOTE | 2024-07-08 15:22 | XR ---
EXAMINATION TYPE: XR shoulder complete RT DATE OF EXAM: 07/08/2024 3:18 PM INDICATION: Patient age:Female; 88 years old; Reason for study: fall, pain; pain COMPARISON: Chest radiograph 01/24/2024 TECHNIQUE: The right shoulder was examined in AP, internally rotated and scapular Y projections. . FINDINGS: No evidence of acute osseous pathology, joint dislocation, or soft tissue swelling. AC joint arthropa thy with joint space narrowing. High riding right humeral head suggesting chronic rotator cuff tear. Atherosclerotic calcification of the aorta. The remaining portions of the visualized chest are unrema rkable. Multiple round external densities identified. IMPRESSION: 1. No acute osseous pathology. 2. Mild AC joint arthropathy. 3. High riding humeral head suggesting chronic rotator cuff tear. [facility], , 07/08/2024 3:20 PM
--- NOTE | 2024-07-08 15:24 | XR ---
EXAMINATION TYPE: XR elbow complete RT DATE OF EXAM: 07/08/2024 3:18 PM INDICATION: Patient age:Female; 88 years old; Reason for study: fall, pain; PHH. pain COMPARISON: None TECHNIQUE: The right elbow was examined in AP, lateral, and oblique projections. FINDINGS: No evidence of any acute osseous pathology or joint dislocation. Soft tissue swelling over the olecranon. No evidence of joint effusion is present. IMPRESSION: 1. No evidence of acute fracture. 2. Soft tissue swelling over the olecranon. [facility], , 07/08/2024 3:22 PM
--- NOTE | 2024-07-08 15:26 | XR ---
EXAMINATION TYPE: XR Hip RT and AP Pelvis DATE OF EXAM: 07/08/2024 3:18 PM INDICATION: Patient age:Female; 88 years old; Reason for study: fall, pain; PHH. pain COMPARISON: CT abdomen and pelvis 11/26/2019 TECHNIQUE: The right hip was examined in the frontal and lateral projections and a AP pelvis. FINDINGS: No evidence of any acute osseous pathology, joint dislocation, or soft tissue swelling. The re is medial and superior joint space narrowing of both hips with acetabular sclerosis. Multilevel de generative changes of the visualized spine. Vascular sclerosis. IMPRESSION: 1. No acute osseous pathology. 2. Mild osteoarthritic changes of both hips. [facility], , 07/08/2024 3:23 PM
[2024-07-08 15:59] VITALS: BP 153/51; PULSE 66
== END 2024-07-08 16:20 | disposition home or self-care (01) ==
LOC: EC 14:25
DX: S70.01XA Contusion of right hip, initial encounter (principal); S40.021A Contusion of right upper arm, initial encounter; S50.01XA Contusion of right elbow, initial encounter; W18.30XA Fall on same level, unspecified, initial encounter
CPT/HCPCS: 73502; 99283